=== PATIENT | male | born 1970 ===

== ENCOUNTER 2016-09-12 01:43 | Emergency (ER) | payer MEDICARE, OTHER ==
[2016-09-12 01:43] VITALS: BMI 44.4
[2016-09-12 01:51] VITALS: RESP 16
--- NOTE | 2016-09-12 02:04 | ED PDOC ---
HPI: Psych/Substance Abuse Time Seen by Provider: 09/12/16 01:47 Chief Complaint (Nursing): Alcohol Ingestion Chief Complaint (Provider): ETOH History Per: Patient Additional Complaint(s): 45 y/o male with PMHx of diastolic CHF, hyperlipidemia, HTN, alcoholic cirrhosis , schizophrenia and PVD presents to ED after drinking tonight and falling onto his face. No LOC. Multiple abrasions noted to face. Past Medical History Reviewed: Historical Data, Nursing Documentation, Vital Signs Vital Signs: Last Vital Signs Temp 98.2 F 09/12/16 01:48 Pulse 89 09/12/16 01:48 Resp 16 09/12/16 01:48 BP 157/86 H 09/12/16 01:48 Pulse Ox 96 09/12/16 01:48 - Medical History PMH: Anxiety, Asthma, Bipolar Disorder, CHF, COPD (ASTHMA), Depression, HTN, Schizophrenia Denies: Alzheimer's Disease, Arthritis, Atrial Fibrillation, Bronchitis, Cardia Arrhythmia, Dementia, Emphysema, Hypercholesterolemia, Hypothyroidism, Migraine, Mitral Valve Prolapse, Multiple Sclerosis, Parkinson's Disease, Peripheral Edema, Pneumonia, Pulmonary Embolism, Chronic Kidney Disease, Rheumatoid Arthritis, Seizures, Sleep Apnea, TIA - Surgical History Surgical History: Appendectomy Denies: Pacemaker - Family History Family History: States: Unknown Family Hx - Social History Alcohol: > 2 Drinks/Day - Immunization History Hx Tetanus Toxoid Vaccination: No Hx Influenza Vaccination: Yes Hx Pneumococcal Vaccination: No - Home Medications Home Medications: Ambulatory Orders Medication Instructions Recorded ARIPiprazole [Abilify] 5 mg PO DAILY #0 tab 07/12/15 Folic Acid 1 mg PO DAILY #0 tab 07/12/15 Lurasidone HCl [Latuda] 40 mg PO HS #0 tablet 07/12/15 Midodrine [Proamatine] 5 mg PO TID #0 tab 07/12/15 Omeprazole 40 mg PO DAILY #0 capsule. 07/12/15 Thiamine [Vitamin B1 Tab] 100 mg PO DAILY #0 tab 07/12/15 Aspirin [Aspirin Chewable] 81 mg PO DAILY #30 chew 09/13/15 Cilostazol 100 mg PO BID #60 tablet 09/13/15 Multivitamins [Hexavitamin] 1 tab PO DAILY #0 tab 09/13/15 Spironolactone [Aldactone] 25 mg PO BID #60 tab 09/13/15 - Allergies Allergies/Adverse Reactions: Allergies Allergy/AdvReac Type Severity Reaction Status Date / Time No Known Allergies Allergy Verified 06/10/16 09:10 Review of Systems ROS Statement: Except As Marked, All Systems Reviewed And Found Negative Skin: Positive for: Other (abrasions) Physical Exam - Reviewed Nursing Documentation Reviewed: Yes Vital Signs Reviewed: Yes - Physical Exam Appears: Positive for: Well, Non-toxic, No Acute Distress Head Exam: Positive for: ATRAUMATIC, NORMAL INSPECTION, NORMOCEPHALIC Skin: Positive for: Normal Color, Warm Eye Exam: Positive for: EOMI, Normal appearance, PERRL ENT: Positive for: Normal ENT Inspection, Other (4 cm laceration to upper lip, not extending through [place] boarder.) Neck: Positive for: Normal, Painless ROM Cardiovascular/Chest: Positive for: Regular Rate, Rhythm Respiratory: Positive for: CNT, Normal Breath Sounds Gastrointestinal/Abdominal: Positive for: Normal Exam, Bowel Sounds, Soft Back: Positive for: Normal Inspection Extremity: Positive for: Normal ROM Neurologic/Psych: Positive for: Alert, Oriented Comments: multiple superficial abrasion to forehead, nasal bridge and cheeks - ECG O2 Sat by Pulse Oximetry: 96 Medical Decision Making Medical Decision Making: Head and Maxillofaial CT: Negative, as per [facility] Facial abrasions cleaned and dressed by blurb writer. Lip laceration repaired, see procedure note. Disposition - Clinical Impression Clinical Impression: Alcohol use, Facial laceration, Head injury - Patient ED Disposition Is Patient to be Admitted: No - Disposition Disposition: Routine/Home Disposition Time: 05:21 Condition: STABLE Instructions: Laceration (ED), Head Injury (ED), Alcohol Intoxication (ED) Laceration - Laceration Repair laceration Wound Length (In cm): 4 Description Of Wound: Irregular Wound Cleansed With: Sterile Saline Anesthesia: Lidocaine 1% Wound Examination: Irrigated With Saline Wound Closure: Suture Suture Technique And Material Used: Vicryl (5-0) Wound Complexity: Simple
[2016-09-12] MEDS ORDERED: Lidocaine 1% Inj (20ml) ONE (02:26)
--- NOTE | 2016-09-12 03:27 | CT ---
EXAM: CT Head Without Intravenous Contrast CLINICAL HISTORY: 46 years old, male; Injury or trauma; Fall; Initial encounter; Concussion / head injury; Without loss of consciousness; Additional info: (+) ETOH, fall, head injury TECHNIQUE: Axial computed tomography images of the head/brain without intravenous contrast. This CT exam was performed using one or more of the following dose reduction techniques: automated exposure control, adjustment of the mA and/or kV according to patient size, and/or use of iterative reconstruction technique. Coronal and sagittal reformatted images were created and reviewed. EXAM DATE/TIME: Exam ordered 09/12/2016 2:02 AM COMPARISON: No relevant prior studies available. FINDINGS: Brain: No intracranial hemorrhage. No significant white matter disease. No edema. Ventricles: Unremarkable. No ventriculomegaly. Bones/joints: Included portions of the mandible appear intact. No acute fracture. Soft tissues: Left frontal extracranial soft tissue swelling. Question prominent left parotid. Sinuses: Paranasal sinuses appear clear. Mastoid air cells: Mastoid air cells appear clear. IMPRESSION: No fractures, no intracranial hemorrhage. Physical examination correlation.
[2016-09-12 11:58] LABS: BASO % 0.5 % (0.0-2.0); EOS # 0.1 K/uL (0.0-0.7); EOS % 2.2 % (0.0-4.0); HEMATOCRIT 39.2 % (35.0-51.0); LYMPH # 1.4 K/uL (1.0-4.3); LYMPH % 39.9 % (20.0-40.0); MEAN CORPUSCULAR HEMOGLOBIN 28.8 pg (27.0-31.0); MEAN CORPUSCULAR HGB CONC 31.9 g/dL (33.0-37.0); MEAN PLATELET VOLUME 7.8 fl (7.2-11.7); MONO # 0.6 K/uL (0.0-0.8); MONO % 16.2 % (0.0-10.0); NEUT # 1.4 K/uL (1.8-7.0); NEUT % 41.2 % (50.0-75.0); NRBC % 0.3 % (0.0-0.0); RED CELL DISTRIBUTION WIDTH 18.5 % (11.5-14.5); WHITE BLOOD COUNT 3.5 K/uL (4.8-10.8)
[2016-09-12 12:08] LABS: ALB/GLOB RATIO 0.7 (1.0-2.1); ALKALINE PHOSPHATASE 180 U/L (38-126); ALT/SGPT 47 U/L (21-72); AST/SGOT 192 U/L (17-59); BILIRUBIN,TOTAL 2.1 mg/dl (0.2-1.3); BLOOD UREA NITROGEN 3 mg/dl (9-20); CALCIUM 8.2 mg/dL (8.4-10.2); CARBON DIOXIDE 24 mmol/L (22-30); CHLORIDE 106 mmol/L (98-107); GFR AFRICAN-AMERICAN > 60; GLUCOSE,RANDOM 93 mg/dL (75-110); MEAN CELL VOLUME 90.2 fl (80.0-94.0); POTASSIUM 4.4 MMOL/L (3.6-5.0); SODIUM 142 mmol/l (132-148); TOTAL PROTEIN 8.8 G/DL (6.3-8.2)
[2016-09-12 12:16] LABS: ALCOHOL SERUM 349 mg/dl (0-10)
--- NOTE | 2016-09-12 12:55 | CT ---
PROCEDURE: CT scan maxillofacial skeleton dated 09/12/2016 HISTORY: (+) ETOH,. Status post fall. Head injury. COMPARISON: Comparison made with concurrent CT scan brain 09/12/2016 TECHNIQUE: Contiguous helical/ transaxial CT images of the maxillofacial bones were obtained. Coronal and sagittal reformats were generated. Radiation dose: Total exam DLP = 815.02 mGy-cm. This CT exam was performed using one or more of the following dose reduction techniques: Automated exposure control, adjustment of the mA and/or kV according to patient size, and/or use of iterative reconstruction technique. Findings: The current study reveals no definitive evidence of acute maxillofacial skeletal fractures. The osseous structures appear intact so far as can be seen of. There is mild soft tissue swelling over the left supraorbital and left frontal region. There may also be some mild soft tissue swelling over the bridge of the nose, more so on the right side. The bony orbits are intact. Globes intact and lenses appropriately located. There are no retrobulbar hemorrhages or collections. Optic nerves and extraocular musculature unremarkable. The visualized paranasal sinuses well-developed and currently well-aerated. No fluid levels seen to suggest acute hemorrhage or sinusitis. Mild mucosal thickening seen in the maxillary antra right greater than left. Minor mucosal thickening noted within a few ethmoid air cells There is mild focal deviation of the nasal septum from left to right. Nasal bone and anterior and nasal spine of the maxilla is intact. The mandible is intact. Impression: No evidence of acute fractures. Mild soft tissue swelling left supraorbital and left frontal region all with what appears represent small amount of soft tissue swelling over the bridge of the nose more so on the right. See above discussion for additional incidental details and findings. .
[2016-09-12 13:00] VITALS: BP 124/77; PULSE 82; TEMP 98.7; O2SAT 97
--- NOTE | 2016-09-12 14:20 | ED PDOC ---
- Laboratory Results Result Diagrams: 09/12/16 11:53 09/12/16 11:53 - ECG O2 Sat by Pulse Oximetry: 97 - Progress Re-evaluation Time: 14:19 Condition: Improved (Awake alert oriented x 3 no focal neuro deficit. Able to ambulate. Requesting to be discharged.) Disposition - Clinical Impression Clinical Impression: Alcohol use, Facial laceration, Head injury, Alcohol intoxication - POA Present On Arrival: None - Disposition Disposition: Routine/Home Disposition Time: 14:20 Condition: FAIR Instructions: Laceration (ED), Head Injury (ED), Alcohol Intoxication (ED) Print Language: AUSTRALIAN
== END 2016-09-12 15:09 | disposition home or self-care (01) ==
LOC: H.ER 01:43
DX: S09.90XA Unspecified injury of head, initial encounter (principal); S01.81XA Laceration without foreign body of other part of head, initial encounter; W19.XXXA Unspecified fall, initial encounter; F10.129 Alcohol abuse with intoxication, unspecified; F20.9 Schizophrenia, unspecified; F31.9 Bipolar disorder, unspecified; F41.9 Anxiety disorder, unspecified; I10 Essential (primary) hypertension; I50.9 Heart failure, unspecified; J44.9 Chronic obstructive pulmonary disease, unspecified; J45.909 Unspecified asthma, uncomplicated; Z79.82 Long term (current) use of aspirin
CPT/HCPCS: 12011; 70450; 70486; 80053; 82140; 85025; 99283; G0480

== ENCOUNTER 2017-01-16 10:46 | Inpatient (IN) | payer MEDICARE, OTHER ==
[2017-01-16 10:48] VITALS: BMI 44.4
--- NOTE | 2017-01-16 11:22 | ED PDOC ---
Syncope/Near Syncope/Dizziness Time Seen by Provider: 01/16/17 10:46 Chief Complaint (Nursing): Abdominal Pain Chief Complaint (Provider): Abdominal Pain History Per: Patient History/Exam Limitations: no limitations Onset/Duration Of Symptoms: Days (x1) Current Symptoms Are (Timing): Still Present Additional Complaint(s): Aman Coyne is a 46 year old male with previous medical history of cirrhosis , who presents to the emergency department with a complaint of upper abdominal pain associated with chills ongoing for 1 day. Denied any fevers or vomiting. PMD: none provided Past Medical History Reviewed: Historical Data, Nursing Documentation, Vital Signs Vital Signs: Last Vital Signs Temp 98.7 F 01/16/17 10:48 Pulse 76 01/16/17 10:48 Resp 18 01/16/17 10:48 BP 104/56 L 01/16/17 10:48 Pulse Ox 98 01/16/17 11:05 - Medical History PMH: Anxiety, Arthritis (BACK,KNEES), Asthma, Bipolar Disorder, CHF, COPD ( ASTHMA), Depression, HTN, Schizophrenia Denies: Alzheimer's Disease, Anemia, Dementia, HIV, Hypothyroidism, Migraine , Multiple Sclerosis, Parkinson's Disease, Chronic Kidney Disease, Rheumatoid Arthritis, Seizures, Sickle Cell Disease, TIA - Surgical History Surgical History: Appendectomy Denies: CABG, Carotid Endarterectomy, Cholecystectomy, Coronary Stent, Pacemaker, Tonsillectomy - Family History Family History: States: Unknown Family Hx - Immunization History Hx Tetanus Toxoid Vaccination: No Hx Influenza Vaccination: Yes Hx Pneumococcal Vaccination: No - Home Medications Home Medications: Ambulatory Orders Medication Instructions Recorded ARIPiprazole [Abilify] 5 mg PO DAILY #0 tab 07/12/15 Folic Acid 1 mg PO DAILY #0 tab 07/12/15 Lurasidone HCl [Latuda] 40 mg PO HS #0 tablet 07/12/15 Midodrine [Proamatine] 5 mg PO TID #0 tab 07/12/15 Omeprazole 40 mg PO DAILY #0 lily. 07/12/15 Thiamine [Vitamin B1 Tab] 100 mg PO DAILY #0 tab 07/12/15 Aspirin [Aspirin Chewable] 81 mg PO DAILY #30 tab 09/22/16 Cilostazol [Pletal] 100 mg PO BID #60 tab 09/22/16 Furosemide 40 mg PO DAILY #30 tablet 12/22/16 Gabapentin [Neurontin] 400 mg PO TID #90 cap 12/22/16 Lactulose [Enulose] 30 gm PO BID #30 12/22/16 Spironolactone [Aldactone] 100 mg PO DAILY #30 tab 12/22/16 rifAXIMin [Xifaxan] 550 mg PO BID #30 tab 12/22/16 Albuterol HFA [Ventolin HFA 90 2 puff IN Q6 PRN 01/16/17 mcg/actuation (8 g)] - Allergies Allergies/Adverse Reactions: Allergies Allergy/AdvReac Type Severity Reaction Status Date / Time No Known Allergies Allergy Verified 01/16/17 11:04 Review of Systems ROS Statement: Except As Marked, All Systems Reviewed And Found Negative Constitutional: Positive for: Chills. Negative for: Fever Gastrointestinal: Positive for: Abdominal Pain (epigastric). Negative for: Vomiting Physical Exam - Reviewed Nursing Documentation Reviewed: Yes Vital Signs Reviewed: Yes - Physical Exam Appears: Positive for: Well, Non-toxic, No Acute Distress Head Exam: Positive for: ATRAUMATIC, NORMAL INSPECTION, NORMOCEPHALIC Skin: Positive for: Normal Color Eye Exam: Positive for: Normal appearance ENT: Positive for: Normal ENT Inspection Neck: Positive for: Normal Cardiovascular/Chest: Positive for: Regular Rate, Rhythm. Negative for: Chest Non Tender Respiratory: Positive for: Normal Breath Sounds, Accessory Muscle Use. Negative for: Decreased Breath Sounds, Respiratory Distress Gastrointestinal/Abdominal: Positive for: Tenderness (epigastric), Asicites. Negative for: Normal Exam Back: Positive for: Normal Inspection. Negative for: L CVA Tenderness, R CVA Tenderness Extremity: Positive for: Normal ROM. Negative for: Tenderness, Pedal Edema, Deformity Neurologic/Psych: Positive for: Alert, Oriented - Laboratory Results Result Diagrams: 01/16/17 11:40 01/16/17 11:40 - ECG O2 Sat by Pulse Oximetry: 98 (RA) Pulse Ox Interpretation: Normal - Progress ED Course And Treament: zosyn 4.5 gm iv x 1 dose in ED ns 1 liter wide open pepcid 20 mg iv x 1 dose lipase noted elevated. d/w Dr. Vargas CT abd/pelvis ordered. morphine 4 mg i vx 1 dose for pain d/w Dr. Wang for admission. US results reviewed with DR. dale, he will f/u with CT evaluation. Medical Decision Making Medical Decision Making: Initial Impression: Abdominal pain Initial Plan: * VBG * EKG * Alcohol serum * Ammonia * CMP * Lipase * Magnesium * Troponin I * CBC * PTT * PT * CXR * Blood culture * Urinalysis * US ABD Time: 1413 --US ABD FINDINGS: LIVER: Measures 12.6 cm in length. There is no increased echogenicity of the hepatic parenchyma as prior CT previously demonstrated fatty liver changes delete. Prior fatty liver changes are not identified sonographically at this time. No mass. No intrahepatic bile duct dilatation. Hepatofugal blood flow suggested on color ultrasound. There is a borderline nodular peripheral hepatic pattern may indicate cirrhosis. GALLBLADDER: Gallbladder appears prominently distended, however, there is no month sonographic Caballero sign, cholelithiasis, mural thickening or pericholecystic fluid collection identified. COMMON BILE DUCT: Measures 8.9 mm. No stones. PANCREAS: The pancreas not visualized to our prominent overlying bowel gas. RIGHT KIDNEY: Measures 11.6 cm in length. Normal echogenicity. No calculus, mass, or hydronephrosis. AORTA: No aneurysmal dilatation. IVC: Unremarkable. OTHER FINDINGS: None . IMPRESSION: -Abnormal dilatation of the common bile duct is identified up to 8.9 mm without choledocholithiasis identified. The gallbladder is markedly distended without mural thickening or cholelithiasis evident. The pancreas is obscured by overlying bowel gas. -Borderline cirrhosis pattern however there is hepatofugal blood flow by color Doppler ultrasound. Further clinical correlation advised. Scribe Attestation: Documented by Krista Frank, acting as a scribe for Karmen Herron PA-C. Provider Scribe Attestation: All medical record entries made by the Scribe were at my direction and personally dictated by me. I have reviewed the chart and agree that the record accurately reflects my personal performance of the history, physical exam, medical decision making, and the department course for this patient. I have also personally directed, reviewed, and agree with the discharge instructions and disposition. Disposition - Clinical Impression Clinical Impression: Pancreatitis - Patient ED Disposition Is Patient to be Admitted: Yes - Disposition Disposition Time: 15:15 Condition: FAIR - Pt Status Changed To: Hospital Disposition Of: Inpatient - Admit Certification Admit to Inpatient:: After my assessment, the patient will require hospitalization for at least two midnights. This is because of the severity of symptoms shown, intensity of services needed, and/or the medical risk in this patient being treated as an outpatient.
[2017-01-16 11:44] LABS: VENOUS BLOOD GAS BASE EXCESS -0.9 mmol/L (0.0-2.0); VENOUS BLOOD GAS PCO2 50 mmHg (40-60); VENOUS BLOOD PH 7.32 (7.32-7.43)
[2017-01-16 11:51] LABS: BASO % 0.3 % (0.0-2.0); EOS % 0.9 % (0.0-4.0); HEMATOCRIT 36.5 % (35.0-51.0); LYMPH # 0.8 K/uL (1.0-4.3); LYMPH % 15.3 % (20.0-40.0); MEAN CELL VOLUME 105.5 fl (80.0-94.0); MEAN CORPUSCULAR HEMOGLOBIN 35.4 pg (27.0-31.0); MEAN CORPUSCULAR HGB CONC 33.5 g/dL (33.0-37.0); MEAN PLATELET VOLUME 8.3 fl (7.2-11.7); MONO # 0.4 K/uL (0.0-0.8); MONO % 7.2 % (0.0-10.0); NEUT # 3.9 K/uL (1.8-7.0); NEUT % 76.3 % (50.0-75.0); NRBC % 0.2 % (0.0-0.0); WHITE BLOOD COUNT 5.2 K/uL (4.8-10.8)
[2017-01-16 11:59] LABS: RBC URINE 1 /hpf (0-3); URINE BILIRUBIN NEGATIVE (NEGATIVE); URINE BLOOD NEGATIVE (NEGATIVE); URINE COLOR YELLOW (YELLOW); URINE GLUCOSE (UA) NEG (Normal); URINE KETONE NEGATIVE (NEGATIVE); URINE LEUKOCYTE ESTERASE NEG Leu/uL (Negative); URINE PROTEIN NEGATIVE (NEGATIVE); URINE UROBILINOGEN 0.2-1.0 mg/dL (0.2-1.0); WBC URINE 1 /hpf (0-5)
[2017-01-16 12:03] LABS: ALB/GLOB RATIO 0.6 (1.0-2.1); ALCOHOL SERUM < 10 mg/dl (0-10); ALKALINE PHOSPHATASE 245 U/L (38-126); ALT/SGPT 61 U/L (21-72); AST/SGOT 119 U/L (17-59); BILIRUBIN,TOTAL 4.7 mg/dl (0.2-1.3); BLOOD UREA NITROGEN 8 mg/dl (9-20); CALCIUM 8.5 mg/dL (8.4-10.2); CARBON DIOXIDE 22 mmol/L (22-30); CHLORIDE 99 mmol/L (98-107); GFR AFRICAN-AMERICAN > 60; GLUCOSE,RANDOM 124 mg/dL (75-110); MAGNESIUM 1.2 MG/DL (1.6-2.3); POTASSIUM 4.2 MMOL/L (3.6-5.0); SODIUM 135 mmol/l (132-148); TOTAL PROTEIN 8.5 G/DL (6.3-8.2)
[2017-01-16] MEDS ORDERED: Sodium Chloride 0.9% 2,000 ML IV STA (12:11)
[2017-01-16 12:16] LABS: LIPASE 3683 U/L (23-300)
--- NOTE | 2017-01-16 12:20 | CARD ---
APPROVED REPORT EKG Measurement Heart [id number] IN 160P-4 [id number] <Conclusion> Sinus rhythm with premature supraventricular complexes Nonspecific ST abnormality Prolonged QT Abnormal ECG baseline artefact
[2017-01-16 12:29] LABS: PARTIAL THROMBOPLASTIN TIME 34.6 Seconds (25.6-37.1)
[2017-01-16] MEDS ORDERED: Lactated Ringer's 2,000 ML IV SCH (12:30)
[2017-01-16] MEDS ORDERED: Magnesium Sulfate 2 gm/50 ml 2 GM/50 ML BAG IVPB ONE (12:39)
[2017-01-16] MEDS ORDERED: Lactated Ringer's 500 ML IV SCH (12:45)
[2017-01-16] MEDS ORDERED: Magnesium Sulfate 2 gm/50 ml 2 GM/50 ML BAG ONE (12:45)
[2017-01-16] MEDS: Lactated Ringer's 500 ML IV SCH ×10 (12:51→16:00)
[2017-01-16] MEDS: Piperacillin/Tazobact 4.5 GM in Sodium Chloride 0.9% 100 ML IVPB SCH ×2 (13:59→21:37)
--- NOTE | 2017-01-16 14:14 | US ---
HISTORY: EVALUATION ASCITES/GALLBLADDER COMPARISON: Abdomen pelvis CT 07/04/2015. TECHNIQUE: Sonographic evaluation of the right upper quadrant of the abdomen. FINDINGS: LIVER: Measures 12.6 cm in length. There is no increased echogenicity of the hepatic parenchyma as prior CT previously demonstrated fatty liver changes delete. Prior fatty liver changes are not identified sonographically at this time. No mass. No intrahepatic bile duct dilatation. Hepatofugal blood flow suggested on color ultrasound. There is a borderline nodular peripheral hepatic pattern may indicate cirrhosis. GALLBLADDER: Gallbladder appears prominently distended, however, there is no month sonographic Caballero sign, cholelithiasis, mural thickening or pericholecystic fluid collection identified. COMMON BILE DUCT: Measures 8.9 mm. No stones. PANCREAS: The pancreas not visualized to our prominent overlying bowel gas. RIGHT KIDNEY: Measures 11.6 cm in length. Normal echogenicity. No calculus, mass, or hydronephrosis. AORTA: No aneurysmal dilatation. IVC: Unremarkable. OTHER FINDINGS: None . IMPRESSION: Abnormal dilatation of the common bile duct is identified up to 8.9 mm without choledocholithiasis identified. The gallbladder is markedly distended without mural thickening or cholelithiasis evident. The pancreas is obscured by overlying bowel gas. Borderline cirrhosis pattern however there is hepatofugal blood flow by color Doppler ultrasound. Further clinical correlation advised.
[2017-01-16 14:58] LABS: VENOUS BLOOD GAS BASE EXCESS 1.7 mmol/L (0.0-2.0); VENOUS BLOOD GAS PCO2 48 mmHg (40-60); VENOUS BLOOD PH 7.37 (7.32-7.43)
[2017-01-16] MEDS ORDERED: Iohexol 300 100 ML IJ ONE (14:59)
[2017-01-16] MEDS ORDERED: Sodium Chloride 0.9% 50 ML IV ONE (14:59)
--- NOTE | 2017-01-16 15:53 | CT ---
PROCEDURE: CT Abdomen and Pelvis with contrast HISTORY: pancreatitis COMPARISON: None. TECHNIQUE: Contrast dose: Omnipaque 300, 95 cc Radiation dose: Total exam DLP = 1086.98 mGy-cm. This CT exam was performed using one or more of the following dose reduction techniques: Automated exposure control, adjustment of the mA and/or kV according to patient size, and/or use of iterative reconstruction technique. FINDINGS: LOWER THORAX: Cardiomegaly is worsened with marked esophageal varices again evident. LIVER: Enlarged cirrhotic liver is appreciated with evidence of hepatofugal blood flow including the aforementioned esophageal varices, but also gastrohepatic and spinal renal varices as well. GALLBLADDER AND BILE DUCTS: Gallbladder is distended with mild mural thickening which is nonspecific. Prior dependent cholelithiasis is now not identified in the gallbladder. The common bile duct is dilated up to 10 mm proximally tapering to 7 mm distally without radiodense choledocholithiasis. PANCREAS: Pancreatic duct is normal caliber. Subtle peripancreatic reaction is questioned but is not definite and may indicate an element of pancreatitis. Clinically correlate. SPLEEN: Splenomegaly is noted to 16.5 cm, increased in the interval. ADRENALS: Unremarkable. No mass. KIDNEYS AND URETERS: Unremarkable. No hydronephrosis. No solid mass. VASCULATURE: Unremarkable. No aortic aneurysm. BOWEL: Unremarkable. No obstruction. No gross mural thickening. APPENDIX: Not clearly identified. PERITONEUM: Mild central lymphadenopathy is appreciated with ground-glass opacity suspicious for mesenteric adenitis which complicates the potential diagnosis of pancreatitis by CT criteria and clinical correlation is advised. LYMPH NODES: Mildly enlarged central mesenteric lymph nodes as noted in the peritoneum section above. BLADDER: Thick-walled urinary bladder is appreciated anteriorly which could reflect cystitis or even neoplasm though the bladder is not fully distended. Clinically correlate further. REPRODUCTIVE: Unremarkable. BONES: No acute fracture. OTHER FINDINGS: None. IMPRESSION: 1. Hepatomegaly with evidence of the hepatofugal blood flow including esophageal, gastrohepatic ligament and low splenorenal varices. 2. Borderline CT pancreatitis pattern however this complicated by the presence of what may be mesenteric adenitis and clinical correlation is advised further. 3. Dilated common bile duct is appreciated in the interval of indeterminate etiology. Consider potential lucent choledocholithiasis, distal CBD stricture pancreatic head lesion or possible axillary lesion has no radiodense cholelithiasis identified. Prior radiodense cholelithiasis in the the dependent gallbladder is not identified currently. 4. Other lesser findings as discussed above.
[2017-01-16] MEDS ORDERED: Piperacillin/Tazobact 4.5 GM in Sodium Chloride 0.9% 100 ML IVPB SCH (16:00)
[2017-01-16] MEDS: Lactated Ringer's 1,000 ML IV SCH ×2 (16:01→20:00)
--- NOTE | 2017-01-16 16:52 | RAD ---
HISTORY: ABD PAIN COMPARISON: Portable chest 07/04/2015. FINDINGS: LUNGS: No active pulmonary disease. PLEURA: No significant pleural effusion identified, no pneumothorax apparent. CARDIOVASCULAR: Stable cardiomegaly. No pulmonary vascular derangement appreciated. OSSEOUS STRUCTURES: No significant abnormalities. VISUALIZED UPPER ABDOMEN: Normal. OTHER FINDINGS: None. IMPRESSION: No interval acute cardiopulmonary disease appreciated. Stable cardiomegaly as compared to prior chest 07/04/2015.
[2017-01-16] MEDS ORDERED: Albuterol HFA 90 mcg/actuation (8 g) INH PRN (17:51)
[2017-01-16] MEDS ORDERED: Influenza Vaccine 18yr & older 0.5 ML/45 MCG SYR IM ONE (18:37)
[2017-01-17 00:08] VITALS: RESP 18
[2017-01-17] MEDS: Lactated Ringer's 1,000 ML IV SCH ×3 (00:22→08:49)
[2017-01-17] MEDS: Piperacillin/Tazobact 4.5 GM in Sodium Chloride 0.9% 100 ML IVPB SCH ×2 (00:22→05:52)
[2017-01-17 06:42] VITALS: PULSE 71; TEMP 98.6; O2SAT 97
[2017-01-17 08:47] VITALS: BP 115/71
[2017-01-17] MEDS ORDERED: Enoxaparin 40 mg Syringe SC SCH (09:00)
[2017-01-17] MEDS ORDERED: Cilostazol 100 mg Tab UD PO SCH (09:00)
[2017-01-17] MEDS ORDERED: Pantoprazole 40 mg EC Tab PO SCH (09:00)
[2017-01-17 09:50] LABS: THYROID STIMULATING HORMONE 2.15 mIU/ML (0.46-4.68)
--- NOTE | 2017-01-18 03:28 | HP ---
CHIEF COMPLAINT: Abdominal pain. HISTORY OF PRESENT ILLNESS: This is a 46-year-old male, known case of cirrhosis of liver, who was having upper abdominal pain for about 1 day duration, so the patient was brought to the emergency room and was admitted for further management. REVIEW OF SYSTEMS: Positive for abdominal pain. Review of system otherwise is negative for headache, dizziness, syncope, loss of consciousness, chest pain, shortness of breath, nausea, vomiting, diarrhea, constipation, anemia, joint or extremity pain. Review of systems is also positive for chills. PAST MEDICAL HISTORY: Significant for anxiety, arthritis, asthma, bipolar disorder, COPD, CHF, depression, cirrhosis, hypertension and schizophrenia. PERSONAL HISTORY: The patient is currently nonsmoker, nondrinker. No substance abuse, but has a history of similar in the past. PERSONAL FAMILY HISTORY: Noncontributory. MEDICATIONS: The patient is on multiple medications, which includes Abilify, folic acid, Latuda, midodrine, omeprazole, thiamine, aspirin, Pletal, Lasix, Neurontin, lactulose, Aldactone, Zyprexa and albuterol. ALLERGIES: The patient is not allergic to any medications. PHYSICAL EXAMINATION: GENERAL: Well-built, well-nourished, morbidly obese male, in no acute distress. VITAL SIGNS: Temperature 98.6, pulse 71, respirations 18, and blood pressure 126/74. HEENT: Pupils reacting to light. Normocephalic, atraumatic skull. NECK: No JVD. No thyromegaly. No lymphadenopathy. No nystagmus. HEART: S1 and S2, normal and regular. No significant murmur, gallop or rub is heard. LUNGS: Shows good bilateral air exchange. No rales or rhonchi. ABDOMEN: Soft and nontender. No organomegaly. No fluids. No sign of acute abdomen. No guarding. No rigidity. No rebound. Bowel sounds are present and normal. EXTREMITIES: No edema. No calf swelling. No tenderness. No acute ischemia. CENTRAL NERVOUS SYSTEM: Essentially unchanged and there is no sign of any acute gross focal motor or sensory neurological deficit. DIAGNOSTIC DATA: Available diagnostic data reviewed. WBC 5.2, hemoglobin 12.2, hematocrit 36.5, and platelets 152. The pH 7.37, pCO2 of 48, pO2 of 19, of course, this is venous blood gas. Sodium 135, potassium 4.2, chloride 99, bicarbonate 22, BUN 8, and creatinine 0.6. Lipase level is 3683, AST of 119, ALT of 61. Urinalysis is negative. CAT scan of abdomen shows hepatomegaly with , questionable pancreatitis, dilated common bile duct. ADMITTING IMPRESSION: Acute pancreatitis, cirrhosis of liver, hypertension, congestive heart failure, chronic obstructive pulmonary disease, depression, bipolar disorder, schizophrenia and arthritis. PLAN: As ordered. Case and plan discussed with the patient. Maninder Wang MD
== END 2017-01-17 10:10 | disposition left against medical advice (07) | DRG 440 ==
LOC: H.ER 10:46 → H.ERHOLD 15:21 → H.TEL 17:10
PROVIDERS: ADMIT Internal Medicine; ATTEND Internal Medicine
PROC: 3E0234Z Introduction of Serum, Toxoid and Vaccine into Muscle, Percutaneous Approach (ICD-10-PCS; principal; 2017-01-16)
DX: K85.90 Acute pancreatitis without necrosis or infection, unspecified (principal); I11.0 Hypertensive heart disease with heart failure; I50.9 Heart failure, unspecified; K74.60 Unspecified cirrhosis of liver; F20.9 Schizophrenia, unspecified; F31.9 Bipolar disorder, unspecified; J44.9 Chronic obstructive pulmonary disease, unspecified; M19.90 Unspecified osteoarthritis, unspecified site; Z79.899 Other long term (current) drug therapy; Z23 Encounter for immunization

== ENCOUNTER 2017-11-02 01:03 | Emergency (ER) | payer MEDICARE, OTHER ==
[2017-11-02 01:33] VITALS: BMI 40.6
[2017-11-02 01:44] VITALS: O2SAT 98
--- NOTE | 2017-11-02 02:55 | ED PDOC ---
HPI: Psych/Substance Abuse Time Seen by Provider: 11/02/17 02:13 Chief Complaint (Nursing): Alcohol Ingestion Chief Complaint (Provider): Alcohol Ingestion History Per: Patient, EMS History/Exam Limitations: no limitations Onset/Duration Of Symptoms: Other (prior to arrival) Current Symptoms Are (Timing): Still Present Additional Complaint(s): 47 y/o male brought to ED by EMS due to public intoxication. Patient denies any medical complaints at this time. PMD: None reported Past Medical History Reviewed: Historical Data, Nursing Documentation, Vital Signs Vital Signs: Last Vital Signs Temp 98.6 F 11/02/17 01:43 Pulse 89 11/02/17 01:43 Resp BP 136/89 11/02/17 01:43 Pulse Ox 98 11/02/17 01:43 - Medical History PMH: Anxiety, Arthritis, Asthma, Bipolar Disorder, CHF, COPD (ASTHMA), Depression, Gall Bladder Disease, HTN, Schizophrenia Denies: Diabetes, Hepatitis, Chronic Kidney Disease, Sexually Transmitted Disease - Surgical History Surgical History: Appendectomy, Cholecystectomy Denies: CABG, Coronary Stent, Pacemaker, Tonsillectomy - Family History Family History: States: Unknown Family Hx - Immunization History Hx Tetanus Toxoid Vaccination: No Hx Influenza Vaccination: Yes Hx Pneumococcal Vaccination: No - Home Medications Home Medications: Ambulatory Orders Medication Instructions Recorded Folic Acid 1 mg PO DAILY #0 tab 07/12/15 Aspirin [Aspirin Chewable] 81 mg PO DAILY #30 chew 04/18/17 Cilostazol [Pletal] 100 mg PO BID #60 tab 04/18/17 Ferrous Sulfate 325 mg PO DAILY #30 tablet 04/18/17 Midodrine [Proamatine] 5 mg PO TID #90 tab 04/18/17 Multivitamins [Hexavitamin] 1 tab PO DAILY #30 tab 04/18/17 rifAXIMin [Xifaxan] 550 mg PO BID #60 tab 04/18/17 Dextromethorphan HBr/Quinidine 1 each PO BID 04/26/17 [Nuedexta 20-10 mg Capsule] Fluticasone Nasal [Flonase] 0.05 mg NS DAILY 04/26/17 Magnesium Oxide [Magnesium] 400 mg PO BID 04/26/17 Memantine HCl 10 mg PO DAILY 04/26/17 Omeprazole 40 mg PO DAILY 04/26/17 Furosemide [Lasix] 20 mg PO BID #30 tab 04/29/17 Lactulose [Enulose] 30 gm PO DAILY #30 udc 04/29/17 Spironolactone [Aldactone] 25 mg PO DAILY #30 tab 04/29/17 Famotidine [Pepcid] 20 mg PO BID 10/28/17 Gabapentin [Neurontin] 400 mg PO TID 10/28/17 Lactulose [Enulose] 20 gm PO TID #42 udc 10/29/17 - Allergies Allergies/Adverse Reactions: Allergies Allergy/AdvReac Type Severity Reaction Status Date / Time No Known Allergies Allergy Verified 10/28/17 07:43 Review of Systems Review Of Systems: ROS cannot be obtained secondary to pt's inabilty to answer questions. Physical Exam - Reviewed Nursing Documentation Reviewed: Yes Vital Signs Reviewed: Yes - Physical Exam Appears: Positive for: Non-toxic, No Acute Distress Head Exam: Positive for: ATRAUMATIC, NORMAL INSPECTION, NORMOCEPHALIC Skin: Positive for: Normal Color, Warm, Dry. Negative for: Rash Eye Exam: Positive for: EOMI, Normal appearance, PERRL Neck: Positive for: Normal, Painless ROM, Supple Cardiovascular/Chest: Positive for: Regular Rate, Rhythm. Negative for: Murmur Respiratory: Positive for: Normal Breath Sounds. Negative for: Respiratory Distress Gastrointestinal/Abdominal: Positive for: Normal Exam, Soft. Negative for: Tenderness Back: Positive for: Normal Inspection. Negative for: L CVA Tenderness, R CVA Tenderness, Vertebral Tenderness Extremity: Positive for: Normal ROM. Negative for: Pedal Edema, Deformity Neurologic/Psych: Positive for: Alert (slurred speech), Oriented. Negative for : Motor/Sensory Deficits - Laboratory Results Result Diagrams: 11/02/17 03:56 11/02/17 03:56 - ECG O2 Sat by Pulse Oximetry: 98 (RA) Pulse Ox Interpretation: Normal Medical Decision Making Medical Decision Makin:18 Impression: 47 y/o male brought to ED due to alcohol abuse Plan: -Alcohol serum -CMP -Drug screen -Urine dipstick -CBC -Accucheck -Reevaluation 06:30 Upon reevaluation, patient has steady gait and clear speech. He is stable for discharge. Scribe Attestation: Documented by Marcos Bullock, acting as a scribe for Oli Davenport MD. Provider Scribe Attestation: All medical record entries made by the Scribe were at my direction and personally dictated by me. I have reviewed the chart and agree that the record accurately reflects my personal performance of the history, physical exam, medical decision making, and the department course for this patient. I have also personally directed, reviewed, and agree with the discharge instructions and disposition. Disposition - Clinical Impression Clinical Impression: Alcohol abuse with intoxication - Patient ED Disposition Is Patient to be Admitted: No Counseled Patient/Family Regarding: Studies Performed, Diagnosis, Need For Followup - Disposition Referrals: Kristy Velasquez MD [Primary Care Provider] - Disposition: Routine/Home Disposition Time: 06:30 Condition: STABLE Additional Instructions: MYLENE MUÑIZ, thank you for letting us take care of you today. Your provider was Oli Davenport MD and you were treated for ETOH. The emergency medical care you received today was directed at your acute symptoms. If you were prescribed any medication, please fill it and take as directed. It may take several days for your symptoms to resolve. Return to the Emergency Department if your symptoms worsen, do not improve, or if you have any other problems. Please contact your doctor or call one of the physicians/clinics you have been referred to that are listed on the Patient Visit Information form that is included in your discharge packet. Bring any paperwork you were given at discharge with you along with any medications you are taking to your follow up visit. Our treatment cannot replace ongoing medical care by a primary care provider outside of the emergency department. Thank you for allowing the [facility] team to be part of your care today. If you had an X-Ray or CT scan: A Radiologist will review the ED reading if any change in treatment is needed we will contact you. If you had a blood, urine, or wound culture: It will take several days for the results, if any change in treatment is needed we will contact you. If you had an STI test: It will take 48 hours for the results. Please call after 1 week if you have not heard back. Instructions: Effects of Alcohol on Your Health Forms: [facility] (Tanzanian)
[2017-11-02 04:05] LABS: BASO % 0.7 % (0.0-2.0); EOS # 0.3 K/uL (0.0-0.7); HEMOGLOBIN 12.3 g/dL (12.0-18.0); LYMPH # 2.4 K/uL (1.0-4.3); LYMPH % 55.7 % (20.0-40.0); MEAN CELL VOLUME 89.7 fl (80.0-94.0); MEAN CORPUSCULAR HEMOGLOBIN 30.2 pg (27.0-31.0); MEAN CORPUSCULAR HGB CONC 33.7 g/dL (33.0-37.0); MEAN PLATELET VOLUME 7.4 fl (7.2-11.7); MONO # 0.4 K/uL (0.0-0.8); MONO % 9.9 % (0.0-10.0); NEUT # 1.2 K/uL (1.8-7.0); NEUT % 27.7 % (50.0-75.0); NRBC % 0.7 % (0.0-0.0); RBC 4.08 Mil/uL (4.40-5.90); RED CELL DISTRIBUTION WIDTH 21.7 % (11.5-14.5); WHITE BLOOD COUNT 4.3 K/uL (4.8-10.8)
[2017-11-02 04:12] LABS: ALB/GLOB RATIO 0.6 (1.0-2.1); ALBUMIN 3.4 g/dL (3.5-5.0); ALT/SGPT 29 U/L (21-72); AST/SGOT 98 U/L (17-59); BLOOD UREA NITROGEN 4 mg/dl (9-20); GFR AFRICAN-AMERICAN > 60; GFR NON-AFRICAN AMERICAN > 60
[2017-11-02 08:34] VITALS: BP 127/78; PULSE 78; RESP 19; TEMP 97
== END 2017-11-02 08:35 | disposition home or self-care (01) ==
LOC: H.ER 01:03
DX: F10.129 Alcohol abuse with intoxication, unspecified (principal); I11.0 Hypertensive heart disease with heart failure; I50.9 Heart failure, unspecified; F20.9 Schizophrenia, unspecified; F31.9 Bipolar disorder, unspecified; F41.9 Anxiety disorder, unspecified
CPT/HCPCS: 80053; 82948; 85025; 99283; G0480

== ENCOUNTER 2017-11-10 23:47 | Emergency (ER) | payer MEDICARE, OTHER ==
[2017-11-10 23:47] VITALS: BMI 40.6
--- NOTE | 2017-11-11 01:10 | ED PDOC ---
HPI: Psych/Substance Abuse Time Seen by Provider: 11/11/17 00:16 Chief Complaint (Nursing): Alcohol Ingestion Chief Complaint (Provider): Alcohol Ingestion ED Caveat: Intoxicated History Per: Patient History/Exam Limitations: no limitations Onset/Duration Of Symptoms: Hrs ([employer]) Current Symptoms Are (Timing): Still Present Additional Complaint(s): 47 year old male well known to this provider for ETOH intoxication was brought to ED by EMS due to public intoxication. Patient denies any medical complaints at this time. PMD: none provided Past Medical History Reviewed: Historical Data, Nursing Documentation, Vital Signs Vital Signs: Last Vital Signs Temp 98.0 F 11/10/17 23:48 Pulse 77 11/10/17 23:48 Resp 16 11/10/17 23:48 BP 117/67 11/10/17 23:48 Pulse Ox 96 11/10/17 23:48 - Medical History PMH: Anxiety, Arthritis, Asthma, Bipolar Disorder, CHF, COPD (ASTHMA), Depression, Gall Bladder Disease, HTN, Schizophrenia Denies: Diabetes, Hepatitis, HIV, Chronic Kidney Disease, Seizures, Sexually Transmitted Disease - Surgical History Surgical History: Appendectomy, Cholecystectomy Denies: CABG, Coronary Stent, Pacemaker, Tonsillectomy - Family History Family History: States: Unknown Family Hx - Immunization History Hx Tetanus Toxoid Vaccination: No Hx Influenza Vaccination: No Hx Pneumococcal Vaccination: No - Home Medications Home Medications: Ambulatory Orders Medication Instructions Recorded Folic Acid 1 mg PO DAILY #0 tab 07/12/15 Fluticasone Nasal [Flonase] 2 spray NS DAILY PRN 04/26/17 Furosemide [Lasix] 20 mg PO BID #30 tab 04/29/17 Spironolactone [Aldactone] 25 mg PO DAILY #30 tab 04/29/17 Gabapentin [Neurontin] 400 mg PO TID 10/28/17 Albuterol Sulfate [Ventolin Hfa] 2 puff IH Q6 PRN 11/11/17 Aspirin [Ecotrin] 81 mg PO DAILY 11/11/17 Cilostazol [Pletal] 100 mg PO Q12 11/11/17 Famotidine [Pepcid] 40 mg PO DAILY 11/11/17 Lactulose [Generlac] 15 ml PO BID 11/11/17 Memantine [Namenda] 10 mg PO DAILY 11/11/17 Nitroglycerin [Nitrostat] 0.4 mg SL Q5MIN PRN 11/11/17 Sertraline [Zoloft] 25 mg PO DAILY 11/11/17 metOLazone [Zaroxolyn] 5 mg PO DAILY 11/11/17 rifAXIMin [Xifaxan] 550 mg PO Q12 11/11/17 - Allergies Allergies/Adverse Reactions: Allergies Allergy/AdvReac Type Severity Reaction Status Date / Time No Known Allergies Allergy Verified 11/11/17 07:10 Review of Systems ROS Statement: Except As Marked, All Systems Reviewed And Found Negative Psych: Positive for: Other (Intoxication) Physical Exam - Reviewed Nursing Documentation Reviewed: Yes Vital Signs Reviewed: Yes - Physical Exam Appears: Positive for: Non-toxic, No Acute Distress Head Exam: Positive for: ATRAUMATIC, NORMOCEPHALIC Skin: Positive for: Normal Color, Warm, Dry Eye Exam: Positive for: EOMI, Normal appearance, PERRL Cardiovascular/Chest: Positive for: Regular Rate, Rhythm. Negative for: Murmur Respiratory: Positive for: Normal Breath Sounds. Negative for: Respiratory Distress Gastrointestinal/Abdominal: Positive for: Normal Exam, Soft. Negative for: Tenderness Extremity: Positive for: Normal ROM (upper and lower) Neurologic/Psych: Positive for: Alert - ECG O2 Sat by Pulse Oximetry: 96 (RA) Pulse Ox Interpretation: Normal Medical Decision Making Medical Decision Making: Time: 00:59 Initial Impression 47 y/o with ETOH intoxication Initial Plan: --Alcohol serum --Accucheck Time: 5:41 --Patient is clinically sober and ready for discharge home. Diagnosis alcohol intoxication. Scribe Attestation: Documented by Fadumo Mills, acting as a scribe for Oli Davenport MD Provider Scribe Attestation: All medical record entries made by the Scribe were at my direction and personally dictated by me. I have reviewed the chart and agree that the record accurately reflects my personal performance of the history, physical exam, medical decision making, and the department course for this patient. I have also personally directed, reviewed, and agree with the discharge instructions and disposition. Disposition - Clinical Impression Clinical Impression: Alcohol abuse with intoxication delirium - Disposition Referrals: Kristy Velasquez MD [Primary Care Provider] - Disposition: Routine/Home Disposition Time: 05:41 Condition: STABLE Instructions: Alcohol Use - When Is Drinking a Problem? Forms: [facility] (Kenyan) Print Language: AUSTRALIAN
[2017-11-11 07:08] VITALS: BP 126/72; PULSE 80; RESP 18; TEMP 98.2
[2017-11-11] MEDS ORDERED: Potassium Chloride 20 mEq ER Tab PO ONE (13:44)
[2017-11-11] MEDS ORDERED: Potassium CL 10 MEQ/50 ML 50 ML ONE (13:45)
[2017-11-11] MEDS ORDERED: Potassium CL 10 MEQ/50 ML 100 ML ONE (14:10)
[2017-11-12 02:01] VITALS: O2SAT 96
== END 2017-11-11 06:55 | disposition home or self-care (01) ==
LOC: H.ER 23:47
DX: F10.121 Alcohol abuse with intoxication delirium (principal); F20.9 Schizophrenia, unspecified; F31.9 Bipolar disorder, unspecified; F41.9 Anxiety disorder, unspecified; I11.0 Hypertensive heart disease with heart failure; Z79.82 Long term (current) use of aspirin
CPT/HCPCS: 82948; 99282; G0480

== ENCOUNTER 2017-11-11 07:07 | Emergency (ER) | payer MEDICARE, OTHER ==
[2017-11-11 07:07] VITALS: BMI 40.6
[2017-11-11 07:17] VITALS: O2SAT 100
--- NOTE | 2017-11-11 08:25 | ED PDOC ---
HPI: Psych/Substance Abuse Time Seen by Provider: 11/11/17 07:34 Chief Complaint (Nursing): Alcohol Ingestion Chief Complaint (Provider): Nausea/Vomiting History Per: Patient History/Exam Limitations: no limitations Onset/Duration Of Symptoms: Hrs Additional Complaint(s): 47 y/o male presents to the ED complaining of nausea and headache. Patient was discharged from the ED for alcohol intoxication last night. Patient returned for symptom relief. PMD: None Provided Past Medical History Reviewed: Historical Data, Nursing Documentation, Vital Signs Vital Signs: Last Vital Signs Temp 98.7 F 11/11/17 07:11 Pulse 87 11/11/17 07:11 Resp 18 11/11/17 07:11 BP 136/82 11/11/17 07:11 Pulse Ox 100 11/11/17 07:11 - Medical History PMH: Anxiety, Arthritis, Asthma, Bipolar Disorder, CHF, COPD (ASTHMA), Depression, Gall Bladder Disease, HTN, Schizophrenia Denies: Diabetes, Hepatitis, HIV, Chronic Kidney Disease, Seizures, Sexually Transmitted Disease - Surgical History Surgical History: Appendectomy, Cholecystectomy Denies: CABG, Coronary Stent, Pacemaker, Tonsillectomy - Family History Family History: States: Unknown Family Hx - Immunization History Hx Tetanus Toxoid Vaccination: No Hx Influenza Vaccination: No Hx Pneumococcal Vaccination: No - Home Medications Home Medications: Ambulatory Orders Medication Instructions Recorded Folic Acid 1 mg PO DAILY #0 tab 07/12/15 Fluticasone Nasal [Flonase] 2 spray NS DAILY PRN 04/26/17 Furosemide [Lasix] 20 mg PO BID #30 tab 04/29/17 Spironolactone [Aldactone] 25 mg PO DAILY #30 tab 04/29/17 Gabapentin [Neurontin] 400 mg PO TID 10/28/17 Albuterol Sulfate [Ventolin Hfa] 2 puff IH Q6 PRN 11/11/17 Aspirin [Ecotrin] 81 mg PO DAILY 11/11/17 Cilostazol [Pletal] 100 mg PO Q12 11/11/17 Famotidine [Pepcid] 40 mg PO DAILY 11/11/17 Lactulose [Generlac] 15 ml PO BID 11/11/17 Memantine [Namenda] 10 mg PO DAILY 11/11/17 Nitroglycerin [Nitrostat] 0.4 mg SL Q5MIN PRN 11/11/17 Sertraline [Zoloft] 25 mg PO DAILY 11/11/17 metOLazone [Zaroxolyn] 5 mg PO DAILY 11/11/17 rifAXIMin [Xifaxan] 550 mg PO Q12 11/11/17 - Allergies Allergies/Adverse Reactions: Allergies Allergy/AdvReac Type Severity Reaction Status Date / Time No Known Allergies Allergy Verified 11/11/17 07:10 Review of Systems ROS Statement: Except As Marked, All Systems Reviewed And Found Negative Gastrointestinal: Positive for: Nausea Neurological: Positive for: Headache Physical Exam - Reviewed Nursing Documentation Reviewed: Yes Vital Signs Reviewed: Yes - Physical Exam Appears: Positive for: No Acute Distress (sleeping comfortably but arousable to verbal stimuli ) Head Exam: Positive for: ATRAUMATIC Skin: Positive for: Normal Color, Warm, Dry Eye Exam: Positive for: Normal appearance, EOMI, PERRL Neck: Positive for: Normal, Painless ROM Cardiovascular/Chest: Positive for: Regular Rate, Rhythm. Negative for: Murmur , Bradycardia Respiratory: Positive for: Normal Breath Sounds. Negative for: Accessory Muscle Use, Respiratory Distress Gastrointestinal/Abdominal: Positive for: Normal Exam, Soft. Negative for: Tenderness Back: Positive for: Normal Inspection. Negative for: L CVA Tenderness, R CVA Tenderness, Vertebral Tenderness Extremity: Positive for: Normal ROM. Negative for: Pedal Edema, Deformity Neurologic/Psych: Positive for: Alert, Oriented (x3), Gait (steady) - ECG O2 Sat by Pulse Oximetry: 100 (RA) Pulse Ox Interpretation: Normal Medical Decision Making Medical Decision Making: Time: 820 -- Patient was able to walk with a steady gait. Patient is now stable for discharge. Scribe Attestation: Documented by Brian Grajeda acting as a scribe for Dr. Carolee Junior MD. Provider Scribe Attestation: All medical record entries made by the Scribe were at my direction and personally dictated by me. I have reviewed the chart and agree that the record accurately reflects my personal performance of the history, physical exam, medical decision making, and the department course for this patient. I have also personally directed, reviewed, and agree with the discharge instructions and disposition. Disposition - Clinical Impression Clinical Impression: Alcohol abuse - Disposition Referrals: [facility] [Outside] Disposition: Routine/Home Disposition Time: 08:22 Condition: STABLE Instructions: Alcohol Abuse and Alcoholism (DC) Forms: [facility] (Armenian), [facility] (Irish) Print Language: MALAGASY
[2017-11-11 08:32] VITALS: BP 140/78; PULSE 67; RESP 20; TEMP 98
== END 2017-11-11 08:25 | disposition home or self-care (01) ==
LOC: H.ER 07:07
DX: F10.129 Alcohol abuse with intoxication, unspecified (principal)

== ENCOUNTER 2017-11-11 11:12 | Inpatient (IN) | payer MEDICARE, OTHER ==
[2017-11-11 11:13] VITALS: BMI 40.6
[2017-11-11 13:11] LABS: BASO % 0.5 % (0.0-2.0); HEMOGLOBIN 12.9 g/dL (12.0-18.0); LYMPH # 0.7 K/uL (1.0-4.3); LYMPH % 27.1 % (20.0-40.0); MEAN CELL VOLUME 87.8 fl (80.0-94.0); MEAN CORPUSCULAR HEMOGLOBIN 30.5 pg (27.0-31.0); MEAN CORPUSCULAR HGB CONC 34.7 g/dL (33.0-37.0); MEAN PLATELET VOLUME 7.4 fl (7.2-11.7); MONO # 0.4 K/uL (0.0-0.8); MONO % 16.9 % (0.0-10.0); NEUT # 1.4 K/uL (1.8-7.0); NEUT % 54.5 % (50.0-75.0); NRBC % 0.3 % (0.0-0.0); RBC 4.22 Mil/uL (4.40-5.90); RED CELL DISTRIBUTION WIDTH 20.4 % (11.5-14.5); WHITE BLOOD COUNT 2.5 K/uL (4.8-10.8)
[2017-11-11 13:27] LABS: ALB/GLOB RATIO 0.6 (1.0-2.1); ALBUMIN 3.3 g/dL (3.5-5.0); ALT/SGPT 30 U/L (21-72); AST/SGOT 91 U/L (17-59); BLOOD UREA NITROGEN 5 mg/dl (9-20); CALCIUM 8.1 mg/dL (8.4-10.2); GFR NON-AFRICAN AMERICAN > 60; LIPASE 90 U/L (23-300)
[2017-11-11] MEDS ORDERED: Potassium Chloride 20 mEq ER Tab PO ONE (13:39)
[2017-11-11] MEDS: Potassium CL 10 MEQ/50 ML 50 ML IVPB SCH ×3 (13:46→15:45)
--- NOTE | 2017-11-11 14:19 | ED PDOC ---
HPI: General Adult Time Seen by Provider: 11/11/17 11:28 Chief Complaint (Nursing): Dizziness/Lightheaded Chief Complaint (Provider): Dizziness/Lightheaded History Per: Patient History/Exam Limitations: no limitations Onset/Duration Of Symptoms: Mins Current Symptoms Are (Timing): Still Present Additional Complaint(s): 47 y/o male with a PMHx of Atrial Fibrillation, CHF, Liver Disease and EtOH Abuse presents to the ED complaining of dizziness and vomiting associated with weakness, onset this morning. Patient reports he does not feel well thus prompting today's visit. Patient states that this is his 3rd visit since last night. Patient was here for alcohol intoxication last night. Patient however thinks he was not here before and believed that he went to [facility]. However, previous charts from earlier today show patient was in fact here at the [facility]. Patient states he did not want to go to the [facility] and wanted to return to [facility] but EMS brought him here. Patient reports he is compliant with medications. Patient is homeless and requesting a place to stay as well. Patient also reports that he suffers from depression and is compliant with medications. Denies rectal bleeding, chest pain, headache, suicidal ideation and homicidal ideation. PMD: Kristy Velasquez Past Medical History Reviewed: Historical Data, Nursing Documentation, Vital Signs Vital Signs: Last Vital Signs Temp 98.8 F 11/11/17 14:00 Pulse 92 H 11/11/17 15:28 Resp 20 11/11/17 14:00 BP 148/82 11/11/17 14:00 Pulse Ox 95 11/11/17 15:27 - Medical History PMH: Anxiety, Arthritis, Asthma, Atrial Fibrillation, Bipolar Disorder, CHF, COPD (ASTHMA), Depression, Gall Bladder Disease, HTN, Schizophrenia Denies: Diabetes, Hepatitis, HIV, Chronic Kidney Disease, Seizures, Sexually Transmitted Disease Other PMH: Liver Disease - Surgical History Surgical History: Appendectomy, Cholecystectomy Denies: CABG, Coronary Stent, Pacemaker, Tonsillectomy - Family History Family History: States: Unknown Family Hx - Social History Alcohol: > 2 Drinks/Day - Immunization History Hx Tetanus Toxoid Vaccination: No Hx Influenza Vaccination: No Hx Pneumococcal Vaccination: No - Home Medications Home Medications: Ambulatory Orders Medication Instructions Recorded Folic Acid 1 mg PO DAILY #0 tab 07/12/15 Fluticasone Nasal [Flonase] 2 spray NS DAILY PRN 04/26/17 Furosemide [Lasix] 20 mg PO BID #30 tab 04/29/17 Spironolactone [Aldactone] 25 mg PO DAILY #30 tab 04/29/17 Gabapentin [Neurontin] 400 mg PO TID 10/28/17 Albuterol Sulfate [Ventolin Hfa] 2 puff IH Q6 PRN 11/11/17 Aspirin [Ecotrin] 81 mg PO DAILY 11/11/17 Cilostazol [Pletal] 100 mg PO Q12 11/11/17 Famotidine [Pepcid] 40 mg PO DAILY 11/11/17 Lactulose [Generlac] 15 ml PO BID 11/11/17 Memantine [Namenda] 10 mg PO DAILY 11/11/17 Nitroglycerin [Nitrostat] 0.4 mg SL Q5MIN PRN 11/11/17 Sertraline [Zoloft] 25 mg PO DAILY 11/11/17 metOLazone [Zaroxolyn] 5 mg PO DAILY 11/11/17 rifAXIMin [Xifaxan] 550 mg PO Q12 11/11/17 - Allergies Allergies/Adverse Reactions: Allergies Allergy/AdvReac Type Severity Reaction Status Date / Time No Known Allergies Allergy Verified 11/11/17 07:10 Review of Systems ROS Statement: Except As Marked, All Systems Reviewed And Found Negative Cardiovascular: Negative for: Chest Pain Gastrointestinal: Positive for: Vomiting Neurological: Positive for: Dizziness. Negative for: Headache Physical Exam - Reviewed Nursing Documentation Reviewed: Yes Vital Signs Reviewed: Yes - Physical Exam Appears: Positive for: No Acute Distress Head Exam: Positive for: ATRAUMATIC, NORMOCEPHALIC Skin: Positive for: Normal Color, Warm, Dry Eye Exam: Positive for: Normal appearance, EOMI, PERRL Neck: Positive for: Normal, Painless ROM Cardiovascular/Chest: Positive for: Regular Rate, Rhythm. Negative for: Murmur Respiratory: Positive for: Normal Breath Sounds. Negative for: Respiratory Distress Gastrointestinal/Abdominal: Positive for: Normal Exam, Soft. Negative for: Tenderness Extremity: Positive for: Normal ROM. Negative for: Pedal Edema, Deformity Neurologic/Psych: Positive for: Alert, Oriented (x3). Negative for: Motor/ Sensory Deficits - Laboratory Results Result Diagrams: 11/11/17 13:00 11/11/17 13:00 - ECG ECG Rhythm: Positive for: Normal QRS, Sinus Rhythm, Nonspecific Changes Rate: 92 O2 Sat by Pulse Oximetry: 95 (RA) Pulse Ox Interpretation: Normal Medical Decision Making Medical Decision Making: Time: 1154 Impression: dizziness, vomiting, confusion, and EtOH intoxication Differentials include but not limited to hepatic encephalopathy, electrolyte abnormality, EtOH intoxication, and dehydration. Plan: -- Zofran 4 mg IV Time: 1300 Plan: -- Head CT w/o Contrast -- Urine Drug Screen -- Glucose, POC Routine -- CBC with differentials -- Lipase -- CMP -- Ammonia -- Alcohol Serum Time: 1354 -- Reviewed labs that show hypocalcemia and elevated ammonia. Time: 1400 Plan: -- Potassium Chloride 20 meq PO -- Potassium [CL 10 MEQ/50 ML STERILE WATER] 50 mL IVPB Q1 1 of 3 Bags Given -- Enulose 20 gm PO -- Magnesium -- EKG Time: [address] RESULTS FINDINGS: HEMORRHAGE: No intracranial hemorrhage. BRAIN: No mass effect or edema. No atrophy or chronic microvascular ischemic changes. VENTRICLES: Unremarkable. No hydrocephalus. CALVARIUM: Unremarkable. PARANASAL SINUSES: Unremarkable as visualized. No significant inflammatory changes. MASTOID AIR CELLS: Unremarkable as visualized. No inflammatory changes. OTHER FINDINGS: None. IMPRESSION: No acute intracranial abnormalities. No significant findings to account for the clinical presentation. No significant interval change compared to the prior examination(s). Scribe Attestation: Documented by Brian Grajeda acting as a scribe for Dr. Rm Rodriguez MD. Provider Scribe Attestation: All medical record entries made by the Scribe were at my direction and personally dictated by me. I have reviewed the chart and agree that the record accurately reflects my personal performance of the history, physical exam, medical decision making, and the department course for this patient. I have also personally directed, reviewed, and agree with the discharge instructions and disposition. Disposition - Clinical Impression Clinical Impression: Dizziness, Alcohol abuse, Alcoholic cirrhosis of liver, Hypomagnesemia, Hypokalemia, Hepatic encephalopathy - Patient ED Disposition Is Patient to be Admitted: Yes Discussed With Dr.: Murtaza Cheung Doctor Will See Patient In The: ED Counseled Patient/Family Regarding: Studies Performed, Diagnosis - Disposition Disposition Time: 14:00 Condition: FAIR - POA Present On Arrival: None
--- NOTE | 2017-11-11 14:52 | CT ---
Date of service: 11/11/2017 PROCEDURE: CT HEAD WITHOUT CONTRAST. HISTORY: Dizziness and vomiting. COMPARISON: 09/12/2016. TECHNIQUE: Axial computed tomography images were obtained through the head/brain without intravenous contrast. Coronal and sagittal reconstructed images. Radiation dose: Total exam DLP = 1003.16 mGy-cm. This CT exam was performed using one or more of the following dose reduction techniques: Automated exposure control, adjustment of the mA and/or kV according to patient size, and/or use of iterative reconstruction technique. FINDINGS: HEMORRHAGE: No intracranial hemorrhage. BRAIN: No mass effect or edema. No atrophy or chronic microvascular ischemic changes. VENTRICLES: Unremarkable. No hydrocephalus. CALVARIUM: Unremarkable. PARANASAL SINUSES: Unremarkable as visualized. No significant inflammatory changes. MASTOID AIR CELLS: Unremarkable as visualized. No inflammatory changes. OTHER FINDINGS: None. IMPRESSION: No acute intracranial abnormalities. No significant findings to account for the clinical presentation. No significant interval change compared to the prior examination(s).
[2017-11-11] MEDS ORDERED: Magnesium Sulfate 1 GM in Dextrose 5% In Water 100 ML IVPB ONE (15:25)
[2017-11-11] MEDS ORDERED: Albuterol HFA 90 mcg/actuation (8 g) IH PRN (15:37)
[2017-11-11] MEDS ORDERED: Multivitamin (MVI) 10 ML, Thiamine 100 MG, Folic Acid 1 MG in Dextrose 5%/0.45% NS 1,00... IV ONE (15:50)
--- NOTE | 2017-11-11 17:05 | CARD ---
APPROVED REPORT Date of service: 11/11/2017 EKG Measurement Heart [id number] <Conclusion> Sinus rhythm with premature atrial complexes ST & T wave abnormality, consider inferior ischemia ST & T wave abnormality, consider anterior ischemia Prolonged QT Abnormal ECG
[2017-11-11] MEDS: Potassium Chloride 20 mEq 100 ML IVPB SCH ×3 (17:25→21:47)
[2017-11-11 19:10] LABS: INR 1.6 (0.9-1.2); PROTHROMBIN TIME 17.8 Seconds (9.8-13.1)
[2017-11-11 21:05] LABS: HEPATITIS B SURFACE AG Negative (NEGATIVE)
[2017-11-11 21:11] LABS: HEPATITIS A IGM NEGATIVE (NEGATIVE); HEPATITIS B CORE AB NEGATIVE (NEGATIVE)
[2017-11-11 21:23] LABS: HEPATITIS C ANTIBODY NEGATIVE (NEGATIVE)
[2017-11-11 23:21] LABS: BARBITURATES, UR NEGATIVE (NEGATIVE); BENZODIAZEPINES, UR NEGATIVE (NEGATIVE); OPIATES, UR NEGATIVE (NEGATIVE); PHENCYCLIDINE, UR NEGATIVE (NEGATIVE)
[2017-11-12 05:39] LABS: BASO % 0.4 % (0.0-2.0); EOS # 0.1 K/uL (0.0-0.7); HEMOGLOBIN 11.6 g/dL (12.0-18.0); LYMPH # 0.8 K/uL (1.0-4.3); LYMPH % 27.5 % (20.0-40.0); MEAN CELL VOLUME 89.4 fl (80.0-94.0); MEAN CORPUSCULAR HEMOGLOBIN 30.3 pg (27.0-31.0); MEAN CORPUSCULAR HGB CONC 33.9 g/dL (33.0-37.0); MEAN PLATELET VOLUME 7.8 fl (7.2-11.7); MONO # 0.6 K/uL (0.0-0.8); MONO % 18.5 % (0.0-10.0); NEUT # 1.6 K/uL (1.8-7.0); NEUT % 50.6 % (50.0-75.0); NRBC % 0.2 % (0.0-0.0); RBC 3.82 Mil/uL (4.40-5.90); RED CELL DISTRIBUTION WIDTH 20.5 % (11.5-14.5); WHITE BLOOD COUNT 3.1 K/uL (4.8-10.8)
[2017-11-12 06:03] LABS: ALB/GLOB RATIO 0.5 (1.0-2.1); ALBUMIN 2.9 g/dL (3.5-5.0); ALT/SGPT 29 U/L (21-72); AST/SGOT 83 U/L (17-59); BLOOD UREA NITROGEN 6 mg/dl (9-20); CALCIUM 7.8 mg/dL (8.4-10.2); GFR NON-AFRICAN AMERICAN > 60
[2017-11-12] MEDS ORDERED: Potassium Chloride 20 mEq 100 ML IVPB ONE ×3 (06:14→08:14)
[2017-11-12] MEDS ORDERED: Potassium Phosphate 30 MMOLE in Sodium Chloride 0.9% 250 ML IV ONE (06:26)
--- NOTE | 2017-11-12 06:52 | CP.PCM.HP ---
History of Present Illness - History of Present Illness History of Present Illness: H&P from 11/11/17 HPI: 47 YO Male with PMHx of cirrhosis, HTN, HLD, PVD, anemia and chronic ETOH abuse presents to [facility] ED for weakness and generalized malaise. Pt states that for the past few days he has been feeling very tired, and weak. His symptoms worsened in the past few days with nausea and multiple bouts of emesis (NBNB). Denies chest pain, dyspnea, palpitations, abdominal pain, chills and fever. PMHx: cirrhosis, HTN, HLD, PVD, afib in the past, anemia and chronic ETOH abuse PSHx: appendectomy Allergies: NKDA Social: hx of smoking for years, ETOH drinks very often and about 7/8 beers at a time, last drink was about 3 days ago per pt. Denies illicit drug use Of note hx obtained from chart review and pt. Indemand used for translation, 1369 Ammonia 189 and ETOH 105 in ED Present on Admission - Present on Admission Any Indicators Present on Admission: No Review of Systems - Constitutional Constitutional: Malaise. absent: Chills, Fever - Cardiovascular Cardiovascular: absent: Chest Pain, Dyspnea - Respiratory Respiratory: absent: Cough, Dyspnea - Gastrointestinal Gastrointestinal: Nausea, Vomiting. absent: Abdominal Pain - Genitourinary Genitourinary: absent: Dysuria Past Patient History - Infectious Disease Hx of Infectious Diseases: None - Tetanus Immunizations Tetanus Immunization: Unknown - Past Medical History & Family History Past Medical History?: Yes - Past Social History Smoking Status: Current Some Days Smoker Alcohol: > 2 Drinks/Day Drugs: Denies Home Situation {Lives}: Homeless - CARDIAC Hx Cardiac Disorders: Yes Hx Atrial Fibrillation: Yes Hx Congestive Heart Failure: Yes Hx Hypertension: Yes Hx Pacemaker: No - PULMONARY Hx Respiratory Disorders: Yes Hx Asthma: Yes Hx Chronic Obstructive Pulmonary Disease (COPD): Yes (ASTHMA) - NEUROLOGICAL Hx Neurological Disorder: No Hx Dizziness: Yes Hx Seizures: No - HEENT Hx HEENT Problems: No - RENAL Hx Chronic Kidney Disease: No - ENDOCRINE/METABOLIC Hx Endocrine Disorders: No - HEMATOLOGICAL/ONCOLOGICAL Hx Blood Disorders: No Hx AIDS: No Hx Human Immunodeficiency Virus (HIV): No - INTEGUMENTARY Hx Dermatological Problems: No - MUSCULOSKELETAL/RHEUMATOLOGICAL Hx Musculoskeletal Disorders: Yes Hx Arthritis: Yes Hx Falls: Yes - GASTROINTESTINAL Hx Gastrointestinal Disorders: Yes Hx Gall Bladder Disease: Yes - GENITOURINARY/GYNECOLOGICAL Hx Genitourinary Disorders: No Hx Sexually Transmitted Disorders: No - PSYCHIATRIC Hx Psychophysiologic Disorder: Yes Hx Anxiety: Yes Hx Bipolar Disorder: Yes Hx Depression: Yes Hx Schizophrenia: Yes Hx Substance Use: No - SURGICAL HISTORY Hx Surgeries: Yes Hx Appendectomy: Yes Hx Cholecystectomy: Yes Hx Coronary Artery Bypass Graft: No Hx Coronary Stent: No Hx Tonsillectomy: No - ANESTHESIA Hx Anesthesia: Yes Hx Anesthesia Reactions: No Hx Malignant Hyperthermia: No Has any member of the family had a problem w/ anesthesia?: No Meds Allergies/Adverse Reactions: Allergies Allergy/AdvReac Type Severity Reaction Status Date / Time No Known Allergies Allergy Verified 11/11/17 07:10 Physical Exam - Constitutional Appears: No Acute Distress, Other (sleepy and lethergic ) - Head Exam Head Exam: NORMAL INSPECTION - ENT Exam ENT Exam: Mucous Membranes Moist - Respiratory Exam Respiratory Exam: NORMAL BREATHING PATTERN. absent: Rales, Wheezes - Cardiovascular Exam Cardiovascular Exam: REGULAR RHYTHM, +S1, +S2 - GI/Abdominal Exam GI & Abdominal Exam: Diminished Bowel Sounds, Distended, Soft. absent: Guarding , Rebound, Rigid Additional comments: fluid wave positive - Extremities Exam Additional comments: chronic dermatic changes with edema b/l in the lower extremities + asterixis - Neurological Exam Neurological exam: Alert Additional comments: patient is lethargic and confused about location and month oriented to name and year Results - Vital Signs Recent Vital Signs: Last Vital Signs Temp 98.8 F 11/12/17 05:08 Pulse 94 H 11/12/17 05:08 Resp 18 11/12/17 05:08 BP 128/73 11/12/17 05:08 Pulse Ox 100 11/12/17 05:08 - Labs Result Diagrams: 11/12/17 05:09 11/12/17 05:09 Labs: Laboratory Results - last 24 hr 11/11/17 11/11/17 11/11/17 12:10 13:00 13:00 WBC 2.5 L RBC 4.22 L Hgb 12.9 Hct 37.1 MCV 87.8 MCH 30.5 MCHC 34.7 RDW 20.4 H Plt Count 119 L D MPV 7.4 Neut % (Auto) 54.5 Lymph % (Auto) 27.1 [place] % (Auto) 16.9 H Eos % (Auto) 1.0 Baso % (Auto) 0.5 Neut # (Auto) 1.4 L Lymph # (Auto) 0.7 L [place] # (Auto) 0.4 Eos # (Auto) 0.0 Baso # (Auto) 0.0 PT INR Sodium 134 Potassium 2.3 L* D Chloride 94 L Carbon Dioxide 25 Anion Gap 17 BUN 5 L Creatinine 0.6 L Est GFR ( Amer) > 60 Est GFR (Non-Af Amer) > 60 POC Glucose (mg/dL) 104 Random Glucose 103 Calcium 8.1 L Phosphorus Magnesium Total Bilirubin 3.0 H AST 91 H ALT 30 Alkaline Phosphatase 185 H D Ammonia Total Protein 9.1 H Albumin 3.3 L Globulin 5.8 H Albumin/Globulin Ratio 0.6 L Lipase 90 Urine Opiates Screen Urine Methadone Screen Ur Barbiturates Screen Ur Phencyclidine Scrn Ur Amphetamines Screen U Benzodiazepines Scrn U Oth Cocaine Metabols U Cannabinoids Screen Alcohol, Quantitative 105 H Hepatitis A IgM Ab Hep Bs Antigen Hep B Core IgM Ab Hepatitis C Antibody 11/11/17 11/11/17 11/11/17 13:00 14:00 17:30 WBC RBC Hgb Hct MCV MCH MCHC RDW Plt Count MPV Neut % (Auto) Lymph % (Auto) [place] % (Auto) Eos % (Auto) Baso % (Auto) Neut # (Auto) Lymph # (Auto) [place] # (Auto) Eos # (Auto) Baso # (Auto) PT INR Sodium Potassium Chloride Carbon Dioxide Anion Gap BUN Creatinine Est GFR ( Amer) Est GFR (Non-Af Amer) POC Glucose (mg/dL) Random Glucose Calcium Phosphorus Magnesium 1.4 L Total Bilirubin AST ALT Alkaline Phosphatase Ammonia 189 H* D Total Protein Albumin Globulin Albumin/Globulin Ratio Lipase Urine Opiates Screen Urine Methadone Screen Ur Barbiturates Screen Ur Phencyclidine Scrn Ur Amphetamines Screen U Benzodiazepines Scrn U Oth Cocaine Metabols U Cannabinoids Screen Alcohol, Quantitative Hepatitis A IgM Ab Negative Hep Bs Antigen Negative Hep B Core IgM Ab Negative Hepatitis C Antibody Negative 11/11/17 11/11/17 11/12/17 18:55 22:46 05:09 WBC 3.1 L RBC 3.82 L Hgb 11.6 L Hct 34.2 L MCV 89.4 MCH 30.3 MCHC 33.9 RDW 20.5 H Plt Count 102 L MPV 7.8 Neut % (Auto) 50.6 Lymph % (Auto) 27.5 [place] % (Auto) 18.5 H Eos % (Auto) 3.0 Baso % (Auto) 0.4 Neut # (Auto) 1.6 L Lymph # (Auto) 0.8 L [place] # (Auto) 0.6 Eos # (Auto) 0.1 Baso # (Auto) 0.0 PT 17.8 H INR 1.6 H Sodium Potassium Chloride Carbon Dioxide Anion Gap BUN Creatinine Est GFR ( Amer) Est GFR (Non-Af Amer) POC Glucose (mg/dL) Random Glucose Calcium Phosphorus Magnesium Total Bilirubin AST ALT Alkaline Phosphatase Ammonia Total Protein Albumin Globulin Albumin/Globulin Ratio Lipase Urine Opiates Screen Negative Urine Methadone Screen Negative Ur Barbiturates Screen Negative Ur Phencyclidine Scrn Negative Ur Amphetamines Screen Negative U Benzodiazepines Scrn Negative U Oth Cocaine Metabols Negative U Cannabinoids Screen Negative Alcohol, Quantitative Hepatitis A IgM Ab Hep Bs Antigen Hep B Core IgM Ab Hepatitis C Antibody 11/12/17 05:09 WBC RBC Hgb Hct MCV MCH MCHC RDW Plt Count MPV Neut % (Auto) Lymph % (Auto) [place] % (Auto) Eos % (Auto) Baso % (Auto) Neut # (Auto) Lymph # (Auto) [place] # (Auto) Eos # (Auto) Baso # (Auto) PT INR Sodium 134 Potassium 2.3 L* Chloride 96 L Carbon Dioxide 28 Anion Gap 12 BUN 6 L Creatinine 0.6 L Est GFR ( Amer) > 60 Est GFR (Non-Af Amer) > 60 POC Glucose (mg/dL) Random Glucose 109 Calcium 7.8 L Phosphorus 2.0 L Magnesium 1.6 Total Bilirubin 3.4 H AST 83 H ALT 29 Alkaline Phosphatase 168 H Ammonia Total Protein 8.4 H Albumin 2.9 L Globulin 5.4 H Albumin/Globulin Ratio 0.5 L Lipase Urine Opiates Screen Urine Methadone Screen Ur Barbiturates Screen Ur Phencyclidine Scrn Ur Amphetamines Screen U Benzodiazepines Scrn U Oth Cocaine Metabols U Cannabinoids Screen Alcohol, Quantitative Hepatitis A IgM Ab Hep Bs Antigen Hep B Core IgM Ab Hepatitis C Antibody Assessment & Plan (1) Hepatic encephalopathy Status: Acute (2) Hypokalemia Status: Acute (3) Hypomagnesemia Status: Resolved (4) Alcoholic cirrhosis of liver Status: Chronic (5) Alcohol abuse with intoxication Status: Acute (6) Hypertension Status: Chronic (7) PVD (peripheral vascular disease) Status: Chronic - Assessment and Plan (Free Text) Assessment: Assessment/Plan: 47 YO Male with PMHx of cirrhosis, HTN, HLD, PVD, anemia and chronic ETOH abuse is admitted for hepatic encephalopathy, hypokalemia. -GI consulted; hep panel neg -pending u/s abd -hypokalemia persists after 90meq of K; will replace as needed -EKG; prolong QT with ST changes and PACs -repeat ekg this AM -lactulose until 2-3 BM/day -MELD score 18, 6% 3 month mortality -CIWA on admission 7; today 3 -CIWA protocol; with ativan prn -CT Head no intracranial abnormalities -blood work reviewed, VS stable -Plan as ordered Pt seen and examined with Dr. Cheung
[2017-11-12 07:08] LABS: INR 1.7 (0.9-1.2); PARTIAL THROMBOPLASTIN TIME 33.7 Seconds (25.6-37.1); PROTHROMBIN TIME 19.4 Seconds (9.8-13.1)
[2017-11-12] MEDS ORDERED: Potassium Chloride 20 mEq 100 ML IVPB SCH (08:00)
[2017-11-12] MEDS: Cilostazol 100 mg Tab UD PO SCH ×2 (08:56→22:00)
--- NOTE | 2017-11-12 11:29 | US ---
Date of service: 11/12/2017 HISTORY: vomiting, elevated LFT levels COMPARISON: Abdomen pelvis CT examination 01/16/2017. TECHNIQUE: Sonographic evaluation of the abdomen. FINDINGS: Study is compromised by body habitus overall. LIVER: Measures 16.0 cm. No definitive hepatic lesion is seen throughout the liver as imaged with hepatic parenchyma appearing mildly inhomogeneous in overall echotexture. Slightly nodular peripheral pattern reiterates cirrhosis. Normal directional blood flow identified at the portal vein. GALLBLADDER: Unremarkable. No gallstones. COMMON BILE DUCT: Measures 6.5 mm. No stones. No dilatation. PANCREAS: Pancreas is not identified due to body habitus and extensive overlying bowel gas. RIGHT KIDNEY: Measures 11.9cm. Normal echogenicity. No calculus, mass, or hydronephrosis. LEFT KIDNEY: Measures 12.9cm. Normal echogenicity. No calculus, mass, or hydronephrosis. SPLEEN: Spleen is enlarged without demonstrated mass associated. Spleen measures 17.6 cm maximum dimension. AORTA: Proximal to mid abdominal aorta is identified with the just distal segment not seen. The visualize segments appear patent. IVC: Proximal inferior vena cava appears patent with the remainder obscured. OTHER FINDINGS: None. IMPRESSION: 1. Limited examination due to body habitus. Splenomegaly is reiterated, without focal splenic mass associated. 2. Cirrhotic liver pattern suggested though not as prominent as prior CT 01/16/2017. This is likely a function of differences in technology/body habitus. Normal directional blood flow at the main portal vein. Mildly inhomogeneous but nonfocal hepatic echotexture. 3. Pancreas is completely obscured by overlying bowel gas. 4. Unremarkable gallbladder with upper limits normal caliber CBD at 6.5 mm.
--- NOTE | 2017-11-12 13:39 | CP.PCM.CON ---
<Vivian Herron - Last Filed: 11/12/17 13:57> History of Present Illness - History of Present Illness History of Present Illness: PGY5 Initial GI Consult Vinicio Coyne is a 46yo male with PMHx significant for EtOH cirrhosis, recent TIA, HTN, HLD who presented to the ED to for lethary and weakness. According to the pt and EMR, he has had a long standing diag of liver cirrhosis, etiology likely Etoh. He states that he does not follow-up with GI. He notes that his PCP was trying to coordinate is diagnosis and tx. He reports going to [facility] in [place], [place] many years ago for work-up, but never followed up. Previous hospitalization post fall. He had a triple phase liver CT done at the time on 11/2016 and it did not reveal any sig. mass indicating HCC. Pt denies any abd pain. He notes that he occasionally sees blood on his toilet paper after wiping and straining. He has never had any endoscopy. States that his last drink was prior to admission. Denies any hematemesis, pruritus, jaundice, nausea, vomiting, weight loss. PMHx: See HPI PSHx: Appendectomy FHx: Discussed with patient and denies any significant FHx Social: Prior EtOH abuse (quit end of August following recent admission); Denies tobacco or illicit drug use Endo: No prior endoscopic evaluations 12-point ROS conducted, neg other than previously stated above Past Patient History - Infectious Disease Hx of Infectious Diseases: None - Tetanus Immunizations Tetanus Immunization: Unknown - Past Medical History & Family History Past Medical History?: Yes - Past Social History Smoking Status: Current Some Days Smoker Alcohol: > 2 Drinks/Day Drugs: Denies Home Situation {Lives}: Homeless - CARDIAC Hx Cardiac Disorders: Yes Hx Atrial Fibrillation: Yes Hx Congestive Heart Failure: Yes Hx Hypertension: Yes Hx Pacemaker: No - PULMONARY Hx Respiratory Disorders: Yes Hx Asthma: Yes Hx Chronic Obstructive Pulmonary Disease (COPD): Yes (ASTHMA) - NEUROLOGICAL Hx Neurological Disorder: No Hx Dizziness: Yes Hx Seizures: No - HEENT Hx HEENT Problems: No - RENAL Hx Chronic Kidney Disease: No - ENDOCRINE/METABOLIC Hx Endocrine Disorders: No - HEMATOLOGICAL/ONCOLOGICAL Hx Blood Disorders: No Hx AIDS: No Hx Human Immunodeficiency Virus (HIV): No - INTEGUMENTARY Hx Dermatological Problems: No - MUSCULOSKELETAL/RHEUMATOLOGICAL Hx Musculoskeletal Disorders: Yes Hx Arthritis: Yes Hx Falls: Yes - GASTROINTESTINAL Hx Gastrointestinal Disorders: Yes Hx Gall Bladder Disease: Yes - GENITOURINARY/GYNECOLOGICAL Hx Genitourinary Disorders: No Hx Sexually Transmitted Disorders: No - PSYCHIATRIC Hx Psychophysiologic Disorder: Yes Hx Anxiety: Yes Hx Bipolar Disorder: Yes Hx Depression: Yes Hx Schizophrenia: Yes Hx Substance Use: No - SURGICAL HISTORY Hx Surgeries: Yes Hx Appendectomy: Yes Hx Cholecystectomy: Yes Hx Coronary Artery Bypass Graft: No Hx Coronary Stent: No Hx Tonsillectomy: No - ANESTHESIA Hx Anesthesia: Yes Hx Anesthesia Reactions: No Hx Malignant Hyperthermia: No Has any member of the family had a problem w/ anesthesia?: No Meds Allergies/Adverse Reactions: Allergies Allergy/AdvReac Type Severity Reaction Status Date / Time No Known Allergies Allergy Verified 11/11/17 07:10 - Medications Medications: Current Medications Albuterol (Ventolin Hfa 90 Mcg/Actuation (8 G)) 2 puff IH Q6 PRN PRN Reason: Shortness of Breath Aspirin (Ecotrin) 81 mg PO DAILY [facility] Last Admin: 11/12/17 08:56 Dose: 81 mg Cilostazol (Pletal) 100 mg PO Q12 [facility] Last Admin: 11/12/17 08:56 Dose: 100 mg Famotidine (Pepcid) 40 mg PO DAILY [facility] Last Admin: 11/12/17 08:56 Dose: 40 mg Folic Acid (Folic Acid) 1 mg PO DAILY [facility] Last Admin: 11/12/17 08:56 Dose: 1 mg Furosemide (Lasix) 20 mg PO BID [facility] Last Admin: 11/12/17 08:57 Dose: 20 mg Lactulose (Enulose) 20 gm PO QID [facility] Last Admin: 11/12/17 08:57 Dose: 20 gm Lorazepam (Ativan) 2 mg IVP Q6 PRN PRN Reason: Agitation Nitroglycerin (Nitrostat Sl Tab) 0.4 mg SL Q5MIN PRN PRN Reason: chest pain Ondansetron HCl (Zofran Inj) 4 mg IVP Q6 PRN PRN Reason: Nausea/Vomiting Potassium Chloride (K-Dur 20 Meq Er Tab) 20 meq PO QID [facility] Stop: 11/13/17 09:01 Rifaximin (Xifaxan) 550 mg PO Q12 [facility] PRN Reason: Protocol Last Admin: 11/12/17 08:55 Dose: 550 mg Physical Exam - Constitutional Appears: Non-toxic, No Acute Distress - Head Exam Head Exam: ATRAUMATIC, NORMOCEPHALIC - Eye Exam Eye Exam: Normal appearance - ENT Exam ENT Exam: Mucous Membranes Moist, Normal Exam - Neck Exam Neck exam: Positive for: Normal Inspection - Respiratory Exam Respiratory Exam: Clear to Auscultation Bilateral, NORMAL BREATHING PATTERN. absent: Prolonged Expiratory Phase, Rales, Rhonchi, Wheezes, Respiratory Distress - Cardiovascular Exam Cardiovascular Exam: REGULAR RHYTHM, +S1, +S2 - GI/Abdominal Exam GI & Abdominal Exam: Normal Bowel Sounds, Soft. absent: Distended, Firm, Guarding, Organomegaly, Rebound, Rigid - Extremities Exam Extremities exam: Negative for: joint swelling, pedal edema - Neurological Exam Neurological exam: Altered, Oriented x3 - Skin Skin Exam: Dry, Intact, Normal Color, Warm Results - Vital Signs Recent Vital Signs: Last Vital Signs Temp 98.1 F 11/12/17 12:02 Pulse 87 11/12/17 12:02 Resp 18 11/12/17 12:02 BP 112/66 11/12/17 12:02 Pulse Ox 100 11/12/17 12:02 - Labs Result Diagrams: 11/12/17 05:09 11/12/17 05:09 Labs: Laboratory Results - last 24 hr 11/11/17 11/11/17 11/11/17 14:00 17:30 18:55 WBC RBC Hgb Hct MCV MCH MCHC RDW Plt Count MPV Neut % (Auto) Lymph % (Auto) [place] % (Auto) Eos % (Auto) Baso % (Auto) Neut # (Auto) Lymph # (Auto) [place] # (Auto) Eos # (Auto) Baso # (Auto) PT 17.8 H INR 1.6 H APTT Sodium Potassium Chloride Carbon Dioxide Anion Gap BUN Creatinine Est GFR ( Amer) Est GFR (Non-Af Amer) Random Glucose Calcium Phosphorus Magnesium 1.4 L Total Bilirubin AST ALT Alkaline Phosphatase Ammonia Total Protein Albumin Globulin Albumin/Globulin Ratio Urine Opiates Screen Urine Methadone Screen Ur Barbiturates Screen Ur Phencyclidine Scrn Ur Amphetamines Screen U Benzodiazepines Scrn U Oth Cocaine Metabols U Cannabinoids Screen Hepatitis A IgM Ab Negative Hep Bs Antigen Negative Hep B Core IgM Ab Negative Hepatitis C Antibody Negative 07/11/12/17 11/12/17 22:46 05:09 05:09 WBC 3.1 L RBC 3.82 L Hgb 11.6 L Hct 34.2 L MCV 89.4 MCH 30.3 MCHC 33.9 RDW 20.5 H Plt Count 102 L MPV 7.8 Neut % (Auto) 50.6 Lymph % (Auto) 27.5 [place] % (Auto) 18.5 H Eos % (Auto) 3.0 Baso % (Auto) 0.4 Neut # (Auto) 1.6 L Lymph # (Auto) 0.8 L [place] # (Auto) 0.6 Eos # (Auto) 0.1 Baso # (Auto) 0.0 PT INR APTT Sodium 134 Potassium 2.3 L* Chloride 96 L Carbon Dioxide 28 Anion Gap 12 BUN 6 L Creatinine 0.6 L Est GFR ( Amer) > 60 Est GFR (Non-Af Amer) > 60 Random Glucose 109 Calcium 7.8 L Phosphorus 2.0 L Magnesium 1.6 Total Bilirubin 3.4 H AST 83 H ALT 29 Alkaline Phosphatase 168 H Ammonia Total Protein 8.4 H Albumin 2.9 L Globulin 5.4 H Albumin/Globulin Ratio 0.5 L Urine Opiates Screen Negative Urine Methadone Screen Negative Ur Barbiturates Screen Negative Ur Phencyclidine Scrn Negative Ur Amphetamines Screen Negative U Benzodiazepines Scrn Negative U Oth Cocaine Metabols Negative U Cannabinoids Screen Negative Hepatitis A IgM Ab Hep Bs Antigen Hep B Core IgM Ab Hepatitis C Antibody 11/12/17 11/12/17 05:09 06:30 WBC RBC Hgb Hct MCV MCH MCHC RDW Plt Count MPV Neut % (Auto) Lymph % (Auto) [place] % (Auto) Eos % (Auto) Baso % (Auto) Neut # (Auto) Lymph # (Auto) [place] # (Auto) Eos # (Auto) Baso # (Auto) PT 19.4 H INR 1.7 H APTT 33.7 Sodium Potassium Chloride Carbon Dioxide Anion Gap BUN Creatinine Est GFR ( Amer) Est GFR (Non-Af Amer) Random Glucose Calcium Phosphorus Magnesium Total Bilirubin AST ALT Alkaline Phosphatase Ammonia 167 H* Total Protein Albumin Globulin Albumin/Globulin Ratio Urine Opiates Screen Urine Methadone Screen Ur Barbiturates Screen Ur Phencyclidine Scrn Ur Amphetamines Screen U Benzodiazepines Scrn U Oth Cocaine Metabols U Cannabinoids Screen Hepatitis A IgM Ab Hep Bs Antigen Hep B Core IgM Ab Hepatitis C Antibody Assessment & Plan - Assessment and Plan (Free Text) Assessment: Aman Coyne is a 46M w/ hx of Cirrohsis 2/2 Etoh who presented to the ED for AMS and weakness Hepatic encephalopathy ETOH cirrhosis, admission MELD 27 HTN Hyperlipidemia Morbid obesity hx of TIA Plan: -unreliable hx of etoh use -pt will eventually need a colonoscopy and endoscopy as an oupt -recommend low salt diet -could not appreciate sig ascities on abd exam, no indication for abd paracentesis at this time -explained the importance of Etoh abstinence with video interp, pt acknowledged understanding -lasix 40mg daily, aldactone 100mg daily upon discharge -abd u/s did not reveal and hepatic mass, + cirrhotic changes -continue lactulose BID to QID, until at least 2-3 BM daily -continue xifaxan D/W Dr. Schneider <Leland Breen - Last Filed: 11/29/17 11:28> Results - Vital Signs Recent Vital Signs: Last Vital Signs Temp 98.2 F 11/15/17 12:36 Pulse 99 H 11/15/17 12:36 Resp 20 11/15/17 12:36 BP 114/69 11/15/17 12:36 Pulse Ox 100 11/15/17 12:36 - Labs Result Diagrams: 11/15/17 04:20 11/15/17 04:20 Assessment & Plan - Assessment and Plan (Free Text) Assessment: patient seen and examined and agree with above Leland Breen MD, PhD
[2017-11-12] MEDS: Potassium Chloride 20 mEq ER Tab PO SCH ×3 (13:47→21:59)
[2017-11-13 07:30] LABS: BASO % 0.6 % (0.0-2.0); EOS # 0.2 K/uL (0.0-0.7); HEMOGLOBIN 12.7 g/dL (12.0-18.0); LYMPH # 0.9 K/uL (1.0-4.3); LYMPH % 35.8 % (20.0-40.0); MEAN CELL VOLUME 91.5 fl (80.0-94.0); MEAN CORPUSCULAR HEMOGLOBIN 30.6 pg (27.0-31.0); MEAN CORPUSCULAR HGB CONC 33.5 g/dL (33.0-37.0); MEAN PLATELET VOLUME 7.6 fl (7.2-11.7); MONO # 0.5 K/uL (0.0-0.8); MONO % 20.3 % (0.0-10.0); NEUT % 37.3 % (50.0-75.0); NRBC % 0.1 % (0.0-0.0); PLATELET COUNT 103 K/uL (130-400); RBC 4.15 Mil/uL (4.40-5.90); RED CELL DISTRIBUTION WIDTH 20.6 % (11.5-14.5); WHITE BLOOD COUNT 2.6 K/uL (4.8-10.8)
[2017-11-13 08:16] LABS: ALB/GLOB RATIO 0.6 (1.0-2.1); ALBUMIN 3.2 g/dL (3.5-5.0); ALT/SGPT 28 U/L (21-72); AST/SGOT 92 U/L (17-59); BLOOD UREA NITROGEN 6 mg/dl (9-20); CALCIUM 7.9 mg/dL (8.4-10.2); GFR NON-AFRICAN AMERICAN > 60
[2017-11-13 09:20] LABS: BASOPHIL 1 % (0-2); EOSINOPHIL 4 % (0-7); LYMPHOCYTE 35 % (20-50); MONOCYTE 16 % (0-10); NEUTROPHIL 44 % (42-75); TOTAL CELLS COUNTED 100
[2017-11-13 09:21] LABS: PLATELET ESTIMATE SLIGHTLY DECREASED (NORMAL)
[2017-11-13 09:22] LABS: ANISOCYTOSIS SLIGHT; LARGE PLATELETS PRESENT; OVALOCYTES SLIGHT; POIKILOCYTOSIS SLIGHT
[2017-11-13] MEDS: Cilostazol 100 mg Tab UD PO SCH ×2 (10:04→21:29)
[2017-11-13] MEDS: Potassium Chloride 20 mEq ER Tab PO SCH (10:05)
--- NOTE | 2017-11-13 13:48 | PN ---
DATE: 11/13/2017 SUBJECTIVE: The patient is seen and examined. The patient seen for Dr. Cheung while he is away. The patient is awake, responsive, and feels okay. Denies any chest pain, shortness of breath, dizziness, or palpitation. PHYSICAL EXAMINATION: GENERAL: The patient is in no acute distress. VITAL SIGNS: Stable. HEART: S1 and S2, normal and regular. LUNGS: Good bilateral air exchange. ABDOMEN: Soft and nontender. EXTREMITIES: No edema. No calf swelling. No tenderness. No acute ischemia. 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 DIAGNOSTIC DATA: Available diagnostic data reviewed . ASSESSMENT AND PLAN: Overall, the patient's general medical condition . Maninder Wang MD
--- NOTE | 2017-11-13 20:31 | CARD ---
APPROVED REPORT Date of service: 11/12/2017 EKG Measurement Heart [id number] <Conclusion> Normal sinus rhythm Possible Left atrial enlargement Nonspecific ST and T wave abnormality Prolonged QT Abnormal ECG
[2017-11-14 07:21] LABS: MEAN CELL VOLUME 91.1 fl (80.0-94.0); MEAN CORPUSCULAR HEMOGLOBIN 30.9 pg (27.0-31.0); MEAN CORPUSCULAR HGB CONC 33.9 g/dL (33.0-37.0); RBC 3.87 Mil/uL (4.40-5.90); RED CELL DISTRIBUTION WIDTH 20.3 % (11.5-14.5)
[2017-11-14 07:59] LABS: ALB/GLOB RATIO 0.5 (1.0-2.1); ALBUMIN 2.9 g/dL (3.5-5.0); ALT/SGPT 21 U/L (21-72); AST/SGOT 77 U/L (17-59); BLOOD UREA NITROGEN 6 mg/dl (9-20); CALCIUM 7.4 mg/dL (8.4-10.2); GFR NON-AFRICAN AMERICAN > 60
[2017-11-14] MEDS: Potassium Chloride 20 mEq ER Tab PO SCH (09:02)
[2017-11-14] MEDS: Cilostazol 100 mg Tab UD PO SCH ×2 (09:05→22:31)
[2017-11-14] MEDS: Potassium CL 10 MEQ/50 ML 50 ML IVPB SCH ×4 (09:06→12:10)
--- NOTE | 2017-11-14 13:15 | PN ---
DATE: 11/14/2017 SUBJECTIVE: The patient seen and examined. Interim events noted. The patient remains in progressive care unit on telemetry monitoring. The patient feels okay. Denies any chest pain or shortness of breath. Abdominal pain is controlled. PHYSICAL EXAMINATION: GENERAL: The patient is in no acute distress. VITAL SIGNS: Stable. HEART: S1 and S2. Normal and regular. LUNGS: Good bilateral air exchange. ABDOMEN: Distended but nonacute. No guarding. No rigidity. No rebound. Bowel sounds are plus and normal. There is no organomegaly. EXTREMITIES: No edema. No calf swelling. No tenderness. No acute ischemia. 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 DIAGNOSTIC DATA: Available diagnostic data reviewed. Ammonia level is 123. ASSESSMENT AND PLAN: Overall, the patient's general medical condition is stable and improving. Plan as ordered. Maninder Wang MD
[2017-11-15 06:05] LABS: HEMOGLOBIN 11.5 g/dL (12.0-18.0); MEAN CELL VOLUME 91.3 fl (80.0-94.0); MEAN CORPUSCULAR HEMOGLOBIN 31.2 pg (27.0-31.0); MEAN CORPUSCULAR HGB CONC 34.2 g/dL (33.0-37.0); RBC 3.69 Mil/uL (4.40-5.90); RED CELL DISTRIBUTION WIDTH 20.6 % (11.5-14.5); WHITE BLOOD COUNT 3.8 K/uL (4.8-10.8)
[2017-11-15 06:44] LABS: ALB/GLOB RATIO 0.5 (1.0-2.1); ALBUMIN 2.8 g/dL (3.5-5.0); ALT/SGPT 30 U/L (21-72); AST/SGOT 78 U/L (17-59); BLOOD UREA NITROGEN 9 mg/dl (9-20); CALCIUM 7.9 mg/dL (8.4-10.2); GFR NON-AFRICAN AMERICAN > 60
[2017-11-15] MEDS: Potassium Chloride 20 mEq ER Tab PO SCH (09:00)
[2017-11-15] MEDS: Cilostazol 100 mg Tab UD PO SCH (09:02)
--- NOTE | 2017-11-15 12:18 | CP.PCM.PN ---
Subjective - Date & Time of Evaluation Date of Evaluation: 11/15/17 Time of Evaluation: 12:16 - Subjective Subjective: no overnight events Objective - Vital Signs/Intake and Output Vital Signs (last 24 hours): Temp Pulse Resp BP Pulse Ox 98.1 F 89 18 125/84 98 11/15/17 04:00 11/15/17 04:00 11/15/17 04:00 11/15/17 09:01 11/15/17 04:00 - Medications Medications: Current Medications Albuterol (Ventolin Hfa 90 Mcg/Actuation (8 G)) 2 puff IH Q6 PRN PRN Reason: Shortness of Breath Aspirin (Ecotrin) 81 mg PO DAILY [facility] Last Admin: 11/15/17 08:59 Dose: 81 mg Cilostazol (Pletal) 100 mg PO Q12 MARK Last Admin: 11/15/17 09:02 Dose: 100 mg Famotidine (Pepcid) 40 mg PO DAILY [facility] Last Admin: 11/15/17 09:01 Dose: 40 mg Folic Acid (Folic Acid) 1 mg PO DAILY [facility] Last Admin: 11/15/17 09:00 Dose: 1 mg Furosemide (Lasix) 20 mg PO BID [facility] Last Admin: 11/15/17 09:01 Dose: 20 mg Lactulose (Enulose) 20 gm PO QID [facility] Last Admin: 11/15/17 09:00 Dose: 20 gm Lorazepam (Ativan) 2 mg IVP Q6 PRN PRN Reason: Agitation Nitroglycerin (Nitrostat Sl Tab) 0.4 mg SL Q5MIN PRN PRN Reason: chest pain Ondansetron HCl (Zofran Inj) 4 mg IVP Q6 PRN PRN Reason: Nausea/Vomiting Potassium Chloride (K-Dur 20 Meq Er Tab) 60 meq PO DAILY [facility] Last Admin: 11/15/17 09:00 Dose: 60 meq Rifaximin (Xifaxan) 550 mg PO Q12 MARK PRN Reason: Protocol Last Admin: 11/15/17 09:02 Dose: 550 mg - Labs Labs: 11/15/17 04:20 11/15/17 04:20 PT 19.4 Seconds (9.8-13.1) H 11/12/17 05:09 INR 1.7 (0.9-1.2) H 11/12/17 05:09 APTT 33.7 Seconds (25.6-37.1) 11/12/17 05:09 - Head Exam Head Exam: NORMAL INSPECTION, NORMOCEPHALIC - Neck Exam Neck Exam: Normal Inspection - Cardiovascular Exam Cardiovascular Exam: REGULAR RHYTHM - GI/Abdominal Exam GI & Abdominal Exam: Soft, Normal Bowel Sounds Assessment and Plan - Assessment and Plan (Free Text) Assessment: 47 yo male with EtOH doing well no new GI issues dc planning when able
[2017-11-15 12:37] VITALS: BP 114/69; PULSE 99; RESP 20; TEMP 98.2; O2SAT 100
== END 2017-11-15 14:39 | disposition home or self-care (01) | DRG 433 ==
LOC: SUPCPDRO 11:12 → H.ER 11:12 → H.ERHOLD 14:20 → H.TEL 15:59
PROVIDERS: ADMIT Family Medicine; ATTEND Family Medicine
DX: K70.30 Alcoholic cirrhosis of liver without ascites (principal); Z68.42 Body mass index [BMI] 45.0-49.9, adult; K72.90 Hepatic failure, unspecified without coma; E87.6 Hypokalemia; E83.42 Hypomagnesemia; F10.129 Alcohol abuse with intoxication, unspecified; E66.01 Morbid (severe) obesity due to excess calories; F31.9 Bipolar disorder, unspecified; E78.5 Hyperlipidemia, unspecified; I11.0 Hypertensive heart disease with heart failure; I50.9 Heart failure, unspecified; E83.51 Hypocalcemia; I48.91 Unspecified atrial fibrillation; I73.9 Peripheral vascular disease, unspecified; J44.9 Chronic obstructive pulmonary disease, unspecified; F20.9 Schizophrenia, unspecified; Y90.5 Blood alcohol level of 100-119 mg/100 ml; F41.9 Anxiety disorder, unspecified; F17.210 Nicotine dependence, cigarettes, uncomplicated; D64.9 Anemia, unspecified; Z86.73 Personal history of transient ischemic attack (TIA), and cerebral infarction without residual deficits; Z79.82 Long term (current) use of aspirin; Z90.49 Acquired absence of other specified parts of digestive tract; Z59.0 Homelessness

== ENCOUNTER 2018-01-28 00:06 | Emergency (ER) | payer MEDICARE, OTHER ==
[2018-01-28 00:06] VITALS: BMI 40.6
[2018-01-28 00:09] VITALS: RESP 14; TEMP 97.7; O2SAT 99
--- NOTE | 2018-01-28 01:51 | ED PDOC ---
HPI: Psych/Substance Abuse Time Seen by Provider: 01/28/18 00:15 Chief Complaint (Nursing): Alcohol Ingestion Chief Complaint (Provider): alcohol ingestion History Per: Patient History/Exam Limitations: no limitations Onset/Duration Of Symptoms: Hrs (today) Current Symptoms Are (Timing): Still Present Additional Complaint(s): Aman Coyne is a 47 year old male, with a past medical history of HTN, who was brought to the emergency department by [facility] for alcohol intoxication. Patient was found sleeping in the street and admits to drinking beer earlier tonight. Patient is well known to ED staff for history of alcohol and drug abuse. Patient states he experienced a brief episode of lower back pain this morning but has no complaints at present. Patient is requesting a place to sleep for the night. He denies any falls/trauma, nausea, vomit, diarrhea, headache, chest pain, SOB, numbness/weakness, fever, or chills. PMD: Kristy Velasquez Past Medical History Reviewed: Historical Data, Nursing Documentation, Vital Signs Vital Signs: Last Vital Signs Temp 97.7 F 01/28/18 00:06 Pulse 57 L 01/28/18 00:06 Resp 14 01/28/18 00:06 BP 139/81 01/28/18 00:06 Pulse Ox 99 01/28/18 00:06 - Medical History PMH: Anxiety, Arthritis, Asthma, Atrial Fibrillation, Bipolar Disorder, CHF, COPD (ASTHMA), Depression, Gall Bladder Disease, HTN, Schizophrenia - Surgical History Surgical History: Appendectomy, Cholecystectomy - Family History Family History: States: Unknown Family Hx - Social History Current smoker - smoking cessation education provided: Yes (Current some days smoker) Alcohol: > 2 Drinks/Day - Home Medications Home Medications: Ambulatory Orders Medication Instructions Recorded Folic Acid 1 mg PO DAILY #0 tab 07/12/15 Fluticasone Nasal [Flonase] 2 spray NS DAILY PRN 04/26/17 Furosemide [Lasix] 20 mg PO BID #30 tab 04/29/17 Gabapentin [Neurontin] 400 mg PO TID 10/28/17 Albuterol Sulfate [Ventolin Hfa] 2 puff IH Q6 PRN 11/11/17 Aspirin [Ecotrin] 81 mg PO DAILY 11/11/17 Cilostazol [Pletal] 100 mg PO Q12 11/11/17 Famotidine [Pepcid] 40 mg PO DAILY 11/11/17 Memantine [Namenda] 10 mg PO DAILY 11/11/17 rifAXIMin [Xifaxan] 550 mg PO Q12 11/11/17 Lactulose [Enulose] 20 gm PO QID #60 udc 11/15/17 Potassium Chloride [K-Tab ER] 20 meq PO DAILY #7 tablet.er 11/15/17 - Allergies Allergies/Adverse Reactions: Allergies Allergy/AdvReac Type Severity Reaction Status Date / Time No Known Allergies Allergy Verified 01/26/18 20:57 Review of Systems ROS Statement: Except As Marked, All Systems Reviewed And Found Negative Constitutional: Negative for: Fever, Chills Gastrointestinal: Negative for: Nausea, Vomiting, Diarrhea Physical Exam - Reviewed Nursing Documentation Reviewed: Yes Vital Signs Reviewed: Yes - Physical Exam Comments: GENERAL APPEARANCE: Patient is awake, alert, oriented x 3, in no acute distress. Resting comfortable. Odor of alcohol on breath SKIN: Warm, dry; (-) cyanosis HEAD: (-) scalp swelling, (-) scalp tenderness. EYES: (+) bilateral conjunctival injection (-) conjunctival pallor, (-) scleral icterus, (-) nystagmus. ENMT: Mucous membranes moist. Airway patent: (-) stridor. NECK: (-) tenderness, (-) stiffness, (-) lymphadenopathy. HEART AND CARDIOVASCULAR: (-) irregularity; (-) murmur, (-) gallop. CHEST AND RESPIRATORY: (-) rales, (-) rhonchi, (-) wheezes; breath sounds equal. ABDOMEN: Soft, (-) distention, (-) tenderness, (-) guarding. NEURO AND PSYCH: Mental status as above. (+) Mild slurred speech. 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 Pupils equal and reactive; EOMI; (-) facial asymmetry; tongue and uvula midline. Strength and DTRs symmetric. - ECG O2 Sat by Pulse Oximetry: 99 (RA) Pulse Ox Interpretation: Normal Medical Decision Making Medical Decision Making: Time: 00:15 Initial Impression: Alcohol abuse and intoxication Initial Plan: --Alcohol serum --Reevaluation 0105 Serum Alcohol: 272 Accucheck: 84 0200 Patient sleeping comfortably in ED. No acute distress noted. 0515 Patient awake, alert, oriented x3. Patient with steady gait in ED without assistance. Patient offers no complaints at this time. Lungs clear to auscultation, cardiac RRR, abdomen soft, non-tender, repeat neuro exam shows no focal findings. Vitals stable. Lab /Diagnostic results d/w the patient in great detail. Diagnosis of alcohol abuse with intoxication d/w the patient. Based on history, exam and diagnostic results, plan will be for outpatient follow up. Patient was observed in ED for 5+ hours with no evidence of neurological deterioration. Patient instructed to follow-up with pmd / referral provided / the clinic in 1- 2 days without fail. Return to the emergency room at any time for any new or worsening symptoms. Patient states he fully agrees with and understands discharge instructions. States that he agrees with the plan and disposition. Verbalized and repeated discharge instructions and plan. I have given the patient opportunity to ask any additional questions. ---- Scribe Attestation: Documented by Fletcher Faust, acting as a scribe for Domonique Costa PA-C. Provider Scribe Attestation: All medical record entries made by the Scribe were at my direction and personally dictated by me. I have reviewed the chart and agree that the record accurately reflects my personal performance of the history, physical exam, medical decision making, and the department course for this patient. I have also personally directed, reviewed, and agree with the discharge instructions and disposition. Disposition - Clinical Impression Clinical Impression: Alcohol abuse with intoxication - Patient ED Disposition Is Patient to be Admitted: No Counseled Patient/Family Regarding: Studies Performed, Diagnosis, Need For Followup - Disposition Referrals: [facility] [Outside] Disposition: Routine/Home Disposition Time: 05:15 Condition: FAIR Additional Instructions: La atencin mdica de emergencia que recibi hoy se dirigi a sudhir sntomas agudos. Si le recetaron algn medicamento, llnelo y tmelo segn las indicaciones. Los sntomas pueden tardar varios basilio en resolverse. Regrese al Departamento de Emergencias si sudhir sntomas empeoran, no mejoran o si tiene otros problemas. Comunquese con maguire mdico dentro de 2 basilio para lm nueva evaluacin y kiera un seguimiento o llame a yordan de los mdicos / clnicas a los que alvarez sido referido y que figuran en el formulario de Informacin de visita al paciente que se incluye en maguire paquete de edil. Lleve con usted a maguire consulta de seguimiento toda la documentacin que recibi del edil junto con los medicamentos que est tomando. Nuestro tratamiento no puede reemplazar la atencin mdica continua por parte de un proveedor de atencin primaria (PCP) fuera del departamento de emergencias. Instructions: Alcohol Abuse and Alcoholism (DC), Effects of Alcohol on Your Health Forms: [employer] (Brazilian) Print Language: LAO - POA Present On Arrival: None Results - Lab Results Lab Results: 01/28/18 01:05 Alcohol, Quantitative 272 H
[2018-01-28 05:56] VITALS: BP 150/91; PULSE 89
== END 2018-01-28 05:55 | disposition home or self-care (01) ==
LOC: H.ER 00:06
DX: F10.129 Alcohol abuse with intoxication, unspecified (principal)
CPT/HCPCS: 82948; 99282; G0480

== ENCOUNTER 2018-06-18 22:42 | Emergency (ER) | payer MEDICARE, OTHER ==
[2018-06-18 22:42] VITALS: BMI 48.0
[2018-06-18 23:47] LABS: SQUAMOUS EPITHIAL < 1 /hpf (0-5); URINE BILIRUBIN NEGATIVE (NEGATIVE); URINE BLOOD NEGATIVE (NEGATIVE); URINE CLARITY CLEAR (Clear); URINE COLOR COLORLESS (YELLOW); URINE GLUCOSE (UA) NEG (NEGATIVE); URINE LEUKOCYTE ESTERASE NEG Leu/uL (Negative); URINE PROTEIN NEGATIVE (NEGATIVE); URINE UROBILINOGEN 0.2-1.0 mg/dL (0.2-1.0)
[2018-06-18] MEDS ORDERED: Metoprolol 1 mg/ml Inj IVP ONE (23:55)
[2018-06-18 23:57] LABS: EOS # 0.2 K/uL (0.0-0.7); EOS % 3.9 % (0.0-4.0); HEMOGLOBIN 12.2 g/dL (12.0-18.0); LYMPH # 2.1 K/uL (1.0-4.3); MEAN CELL VOLUME 93.2 fl (80.0-94.0); MEAN CORPUSCULAR HGB CONC 33.3 g/dL (33.0-37.0); MEAN PLATELET VOLUME 7.3 fl (7.2-11.7); MONO # 0.5 K/uL (0.0-0.8); MONO % 12.4 % (0.0-10.0); NEUT # 1.6 K/uL (1.8-7.0); NEUT % 35.7 % (50.0-75.0); NRBC % 0.2 % (0.0-0.0); RBC 3.95 Mil/uL (4.40-5.90); RED CELL DISTRIBUTION WIDTH 20.7 % (11.5-14.5); WHITE BLOOD COUNT 4.4 K/uL (4.8-10.8)
[2018-06-19 00:10] LABS: ALB/GLOB RATIO 0.6 (1.0-2.1); ALBUMIN 3.2 g/dL (3.5-5.0); ALT/SGPT 29 U/L (21-72); AST/SGOT 66 U/L (17-59); BLOOD UREA NITROGEN 5 mg/dl (9-20); CALCIUM 8.5 mg/dL (8.4-10.2); GFR NON-AFRICAN AMERICAN > 60
[2018-06-19 00:21] LABS: B-TYPE NATRIURETIC PEPTIDE 182 pg/ml (0-450)
[2018-06-19] MEDS ORDERED: Metoprolol 1 mg/ml Inj ONE (00:49)
--- NOTE | 2018-06-19 02:43 | ED PDOC ---
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 His chart indicates that he has been seen in various hosptial emergency rooms in the area and treated for pain over the last few days; pt indicates that he hs not followed up nor filled his prescriptions Past Medical History Reviewed: Historical Data, Nursing Documentation, Vital Signs Vital Signs: Last Vital Signs Temp 98.4 F 06/18/18 22:46 Pulse 110 H 06/18/18 22:46 Resp 18 06/18/18 22:46 BP 132/75 06/18/18 22:46 Pulse Ox 98 06/18/18 22:46 - Medical History PMH: Anemia, Anxiety, Arthritis (KNEE), Asthma, Atrial Fibrillation, Cardia Arrh ythmia, CHF, COPD, Gall Bladder Disease, HTN, Pancreatitis, Pneumonia, Schizophrenia, TIA Denies: Bipolar Disorder, Depression, Diabetes, Hepatitis, HIV, Chronic Kidney Disease, Seizures, Sexually Transmitted Disease - Surgical History Surgical History: Appendectomy, Cholecystectomy Denies: CABG, Coronary Stent, Pacemaker, Tonsillectomy - Family History Family History: States: Unknown Family Hx - Immunization History Hx Tetanus Toxoid Vaccination: No Hx Influenza Vaccination: No Hx Pneumococcal Vaccination: No - Home Medications Home Medications: Ambulatory Orders Medication Instructions Recorded Folic Acid 1 mg PO DAILY #0 tab 07/12/15 Gabapentin [Neurontin] 400 mg PO TID 10/28/17 Cilostazol [Pletal] 100 mg PO Q12 11/11/17 rifAXIMin [Xifaxan] 550 mg PO Q12 11/11/17 Potassium Chloride [K-Tab ER] 20 meq PO DAILY #7 tablet.er 11/15/17 Lactulose [Enulose] 20 gm PO BID 30 Days udc 03/17/18 Magnesium Oxide [Mag-Ox] 800 mg PO TID #40 tab 05/13/18 Spironolactone [Aldactone] 50 mg PO DAILY #30 tab 05/13/18 levoFLOXacin [Levaquin] 1 tab PO DAILY #7 tab 06/12/18 Cyclobenzaprine [Cyclobenzaprine 10 mg PO TID #15 tab 06/13/18 HCl] Ibuprofen [Motrin] 600 mg PO TID #15 tab 06/13/18 Ibuprofen [Motrin] 1 tab PO QID #30 tab 06/19/18 - Allergies Allergies/Adverse Reactions: Allergies Allergy/AdvReac Type Severity Reaction Status Date / Time No Known Allergies Allergy Verified 06/18/18 22:44 Review of Systems ROS Statement: Except As Marked, All Systems Reviewed And Found Negative Cardiovascular: Positive for: Edema Respiratory: Negative for: Cough Musculoskeletal: Positive for: Leg Pain Skin: Positive for: Rash Physical Exam - Reviewed Nursing Documentation Reviewed: Yes Vital Signs Reviewed: Yes - Physical Exam Appears: Positive for: No Acute Distress, Uncomfortable Head Exam: Positive for: ATRAUMATIC, NORMAL INSPECTION Skin: Positive for: Warm, Dry, Rash. Negative for: Normal Color, Diaphoresis, Pallor Eye Exam: Positive for: Normal appearance. Negative for: Nystagmus, Periorbital swelling, Periorbital tenderness Cardiovascular/Chest: Positive for: Regular Rate, Rhythm Respiratory: Positive for: Normal Breath Sounds. Negative for: Stridor, Wheezing, Respiratory Distress Pulses-Carotid (L): 2+ Pulses-Carotid (R): 2+ Pulses-Radial (L): 2+ Pulses-Radial (R): 2+ Extremity: Positive for: Tenderness, Pedal Edema, Capillary Refill. Negative for: Deformity - Laboratory Results Result Diagrams: 06/18/18 23:25 06/18/18 23:25 Lab Results: Troponin I 0.0160 ng/mL (0.00-0.120) 06/18/18 23:25 NT-Pro-B Natriuret Pep 182 pg/ml (0-450) 06/18/18 23:25 Total Bilirubin 1.3 mg/dl (0.2-1.3) 06/18/18 23:25 AST 66 U/L (17-59) H D 06/18/18 23:25 ALT 29 U/L (21-72) 06/18/18 23:25 Alkaline Phosphatase 164 U/L (38-126) H 06/18/18 23:25 Total Protein 9.1 G/DL (6.3-8.2) H 06/18/18 23:25 Albumin 3.2 g/dL (3.5-5.0) L 06/18/18 23:25 Globulin 5.8 gm/dL (2.2-3.9) H 06/18/18 23:25 Albumin/Globulin Ratio 0.6 (1.0-2.1) L 06/18/18 23:25 Urine Color Colorless (YELLOW) 06/18/18 23:20 Urine Clarity Clear (Clear) 06/18/18 23:20 Urine pH 7.0 (5.0-8.0) 06/18/18 23:20 Ur Specific [place] < 1.005 (1.003-1.030) 06/18/18 23:20 Urine Protein Negative mg/dL (NEGATIVE) 06/18/18 23:20 Urine Glucose (UA) Neg mg/dL (NEGATIVE) 06/18/18 23:20 Urine Ketones Negative mg/dL (NEGATIVE) 06/18/18 23:20 Urine Blood Negative (NEGATIVE) 06/18/18 23:20 Urine Nitrate Negative (NEGATIVE) 06/18/18 23:20 Urine Bilirubin Negative (NEGATIVE) 06/18/18 23:20 Urine Urobilinogen 0.2-1.0 mg/dL (0.2-1.0) 06/18/18 23:20 Ur Leukocyte Esterase Neg Vivian/uL (Negative) 06/18/18 23:20 Urine RBC (Auto) < 1 /hpf (0-3) 06/18/18 23:20 Urine Microscopic WBC < 1 /hpf (0-5) 06/18/18 23:20 Ur Squamous Epith Cells < 1 /hpf (0-5) 06/18/18 23:20 - ECG O2 Sat by Pulse Oximetry: 98 Medical Decision Making Medical Decision Making: I: rule out hyperammonia/CHF P: labs CBC CMP BNP UA Disposition - Clinical Impression Clinical Impression: Edema, Sciatica - Patient ED Disposition Is Patient to be Admitted: No Doctor Will See Patient In The: Office Counseled Patient/Family Regarding: Diagnosis, Need For Followup - Disposition Referrals: Kristy Velasquez MD [Medical Doctor] - Disposition: Routine/Home Disposition Time: 01:40 Condition: STABLE Prescriptions: Ibuprofen [Motrin] 1 tab PO QID #30 tab Instructions: Sciatica (DC), Dependent Edema (DC), Swelling, Fluid Restricted Diet, Sciatica Exercises Forms: [employer] (Khmer), [employer] (Uzbek) Print Language: KISWAHILI
[2018-06-19 06:58] VITALS: BP 118/66; PULSE 98; RESP 17; TEMP 98.1; O2SAT 100
--- NOTE | 2018-06-19 09:57 | CARD ---
APPROVED REPORT Date of service: 06/18/2018 EKG Measurement Heart [id number] <Conclusion> Atrial fibrillation with rapid ventricular response Nonspecific ST and T wave abnormality Abnormal ECG
--- NOTE | 2018-06-19 10:46 | RAD ---
Date of service: 06/18/2018 HISTORY: sob/sultana COMPARISON: Chest radiograph dated 01/16/2017. TECHNIQUE: Chest PA and lateral FINDINGS: LUNGS: No active pulmonary disease. PLEURA: No significant pleural effusion identified. No pneumothorax apparent. CARDIOVASCULAR: No aortic atherosclerotic calcification present. Cardiomediastinal silhouette stably enlarged. OSSEOUS STRUCTURES: Unchanged. VISUALIZED UPPER ABDOMEN: Normal. OTHER FINDINGS: None. IMPRESSION: No active disease.
== END 2018-06-19 05:53 | disposition home or self-care (01) ==
LOC: H.ER 22:42
DX: M54.30 Sciatica, unspecified side (principal); R60.0 Localized edema; J44.9 Chronic obstructive pulmonary disease, unspecified; Z79.899 Other long term (current) drug therapy; Z86.73 Personal history of transient ischemic attack (TIA), and cerebral infarction without residual deficits
CPT/HCPCS: 71046; 80053; 81003; 82140; 83880; 84484; 85025; 93005; 96374; 99285; G0480; J1885

== ENCOUNTER 2018-06-19 21:31 | Emergency (ER) | payer MEDICARE, OTHER ==
[2018-06-19 21:32] VITALS: BMI 48.0
[2018-06-19 21:35] VITALS: BP 117/78; PULSE 93; RESP 18; TEMP 97.1; O2SAT 100
--- NOTE | 2018-06-20 00:16 | ED PDOC ---
HPI: Psych/Substance Abuse Time Seen by Provider: 06/19/18 21:47 Chief Complaint (Nursing): Alcohol Ingestion Chief Complaint (Provider): Chronic Pain, Bed Seeking Behavior ED Caveat: Uncooperative History Per: Patient History/Exam Limitations: no limitations Onset/Duration Of Symptoms: Days (chronic pain) Current Symptoms Are (Timing): Constant (Pt presents to the ED complaining of "pain" after having been discharged with an NSAID rx earlier today. The patient denies any truama or any changes in his condition, but does state that his sister has asked him to leave the house and he is desireous of a place to stay. The patient has a PMHx that includes alcohol abuse (current), cirrohis (current), HTN and D2M.) Past Medical History Reviewed: Historical Data, Nursing Documentation, Vital Signs Vital Signs: Last Vital Signs Temp 97.1 F L 06/19/18 21:33 Pulse 93 H 06/19/18 21:33 Resp 18 06/19/18 21:33 BP 117/78 06/19/18 21:33 Pulse Ox 100 06/19/18 21:33 - Medical History PMH: Anemia, Anxiety, Arthritis (KNEE), Asthma, Atrial Fibrillation, Cardia Arrhythmia, CHF, COPD, Gall Bladder Disease, HTN, Pancreatitis, Pneumonia, Schizophrenia, TIA Denies: Bipolar Disorder, Depression, Diabetes, Hepatitis, HIV, Chronic Kidney Disease, Seizures, Sexually Transmitted Disease - Surgical History Surgical History: Appendectomy, Cholecystectomy Denies: CABG, Coronary Stent, Pacemaker, Tonsillectomy - Family History Family History: States: Unknown Family Hx - Immunization History Hx Tetanus Toxoid Vaccination: No Hx Influenza Vaccination: No Hx Pneumococcal Vaccination: No - Home Medications Home Medications: Ambulatory Orders Medication Instructions Recorded Folic Acid 1 mg PO DAILY #0 tab 07/12/15 Gabapentin [Neurontin] 400 mg PO TID 10/28/17 Cilostazol [Pletal] 100 mg PO Q12 11/11/17 rifAXIMin [Xifaxan] 550 mg PO Q12 11/11/17 Potassium Chloride [K-Tab ER] 20 meq PO DAILY #7 tablet.er 11/15/17 Lactulose [Enulose] 20 gm PO BID 30 Days udc 03/17/18 Magnesium Oxide [Mag-Ox] 800 mg PO TID #40 tab 05/13/18 Spironolactone [Aldactone] 50 mg PO DAILY #30 tab 05/13/18 levoFLOXacin [Levaquin] 1 tab PO DAILY #7 tab 06/12/18 Cyclobenzaprine [Cyclobenzaprine 10 mg PO TID #15 tab 06/13/18 HCl] Ibuprofen [Motrin] 600 mg PO TID #15 tab 06/13/18 Ibuprofen [Motrin] 1 tab PO QID #30 tab 06/19/18 - Allergies Allergies/Adverse Reactions: Allergies Allergy/AdvReac Type Severity Reaction Status Date / Time No Known Allergies Allergy Verified 06/18/18 22:44 Review of Systems ROS Statement: Except As Marked, All Systems Reviewed And Found Negative Musculoskeletal: Positive for: Other (pain) Physical Exam - Reviewed Nursing Documentation Reviewed: Yes Vital Signs Reviewed: Yes - Physical Exam Appears: Positive for: Well, Non-toxic, No Acute Distress, Uncomfortable Head Exam: Positive for: ATRAUMATIC, NORMAL INSPECTION Skin: Positive for: Normal Color, Warm, Dry. Negative for: Diaphoresis, Pallor, Rash Eye Exam: Positive for: Normal appearance. Negative for: Nystagmus, Periorbital swelling, Periorbital tenderness Neck: Positive for: Normal, Painless ROM, Supple. Negative for: Decreased ROM Cardiovascular/Chest: Positive for: Regular Rate, Rhythm Respiratory: Positive for: Normal Breath Sounds Extremity: Positive for: Tenderness, Pedal Edema, Swelling (The patient has chronic dry venous statis of the bilateral lower extremities) - ECG O2 Sat by Pulse Oximetry: 100 Medical Decision Making Medical Decision Making: I: chronic pain seeking narcotic relief P: advise to fill rx given earlier in day; discharge The patient is stable for discharge The patient is safe for discharge Disposition - Clinical Impression Clinical Impression: Chronic pain Counseled Patient/Family Regarding: Diagnosis - Disposition Disposition: Routine/Home Disposition Time: 00:05 Condition: STABLE Instructions: Chronic Pain (DC) Forms: [employer] (Ivorian), [employer] (Portuguese) Print Language: INDONESIAN
== END 2018-06-20 00:45 | disposition home or self-care (01) ==
LOC: H.ER 21:31
DX: G89.29 Other chronic pain (principal); Z86.59 Personal history of other mental and behavioral disorders; I11.0 Hypertensive heart disease with heart failure; J44.9 Chronic obstructive pulmonary disease, unspecified; Z79.899 Other long term (current) drug therapy; Z86.73 Personal history of transient ischemic attack (TIA), and cerebral infarction without residual deficits; E11.9 Type 2 diabetes mellitus without complications

== ENCOUNTER 2018-07-01 00:33 | Emergency (ER) | payer MEDICARE, OTHER ==
[2018-07-01 00:33] VITALS: BMI 48.0
--- NOTE | 2018-07-01 04:18 | ED PDOC ---
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 Patient states he has been staying at the custodial and "just can't do it anymore". Patient denies numbness/weakness of extremities, bowel/bladder incontinence. Past Medical History Reviewed: Historical Data, Nursing Documentation, Vital Signs Vital Signs: Last Vital Signs Temp 98.0 F 07/01/18 02:55 Pulse 98 H 07/01/18 02:55 Resp 18 07/01/18 02:55 BP 103/72 07/01/18 02:55 Pulse Ox 100 07/01/18 02:55 - Medical History PMH: Anemia, Anxiety, Arthritis (KNEE), Asthma, Atrial Fibrillation, Cardia Arrhythmia, CHF, COPD, Gall Bladder Disease, HTN, Pancreatitis, Pneumonia, Schizophrenia, TIA Denies: Bipolar Disorder, Depression, Diabetes, Hepatitis, HIV, Chronic Kidney Disease, Seizures, Sexually Transmitted Disease - Surgical History Surgical History: Appendectomy, Cholecystectomy Denies: CABG, Coronary Stent, Pacemaker, Tonsillectomy - Family History Family History: States: Unknown Family Hx - Immunization History Hx Tetanus Toxoid Vaccination: No Hx Influenza Vaccination: No Hx Pneumococcal Vaccination: No - Home Medications Home Medications: Ambulatory Orders Medication Instructions Recorded Folic Acid 1 mg PO DAILY #0 tab 07/12/15 Gabapentin [Neurontin] 400 mg PO TID 10/28/17 Cilostazol [Pletal] 100 mg PO Q12 11/11/17 rifAXIMin [Xifaxan] 550 mg PO Q12 11/11/17 Potassium Chloride [K-Tab ER] 20 meq PO DAILY #7 tablet.er 11/15/17 Lactulose [Enulose] 20 gm PO BID 30 Days udc 03/17/18 Magnesium Oxide [Mag-Ox] 800 mg PO TID #40 tab 05/13/18 Spironolactone [Aldactone] 50 mg PO DAILY #30 tab 05/13/18 levoFLOXacin [Levaquin] 1 tab PO DAILY #7 tab 06/12/18 Cyclobenzaprine [Cyclobenzaprine 10 mg PO TID #15 tab 06/13/18 HCl] Ibuprofen [Motrin] 600 mg PO TID #15 tab 06/13/18 Ibuprofen [Motrin] 600 mg PO Q6H #14 tab 06/24/18 - Allergies Allergies/Adverse Reactions: Allergies Allergy/AdvReac Type Severity Reaction Status Date / Time No Known Allergies Allergy Verified 07/01/18 02:55 Review of Systems ROS Statement: Except As Marked, All Systems Reviewed And Found Negative Musculoskeletal: Positive for: Back Pain Physical Exam - Reviewed Nursing Documentation Reviewed: Yes Vital Signs Reviewed: Yes - Physical Exam Appears: Positive for: Well, Non-toxic, No Acute Distress Head Exam: Positive for: ATRAUMATIC, NORMAL INSPECTION, NORMOCEPHALIC Skin: Positive for: Normal Color Cardiovascular/Chest: Positive for: Regular Rate, Rhythm Respiratory: Positive for: Normal Breath Sounds Back: Positive for: Normal Inspection, Muscle Spasm (bilateral lspine paravertebral tenderness). Negative for: L CVA Tenderness, R CVA Tenderness, Vertebral Tenderness Extremity: Positive for: Pedal Edema (bilateral), Swelling (bilateral lower extremity edema with chronic venous stasis skin changes; no warmth, erythema noted). Negative for: Calf Tenderness Neurological/Psych: Positive for: Awake, Alert, Oriented (x3) - ECG O2 Sat by Pulse Oximetry: 100 - Progress ED Course And Treament: -Toradol IM Patient sleeping throughout ED visit. Patient requires no further intervention in the ED and is stable for discharge at this time Patient was advised to follow up with PMD Advised ibuprofen PRN pain Return precautions given Disposition - Clinical Impression Clinical Impression: Chronic pain - Patient ED Disposition Is Patient to be Admitted: No Counseled Patient/Family Regarding: Diagnosis, Need For Followup - Disposition Disposition: Routine/Home Disposition Time: 04:27 Condition: IMPROVED Instructions: Low Back Pain in Adults Print Language: TUVALU[place]
[2018-07-01 04:56] VITALS: BP 114/84; PULSE 68; RESP 15; TEMP 98.2; O2SAT 97
== END 2018-07-01 05:21 | disposition home or self-care (01) ==
LOC: H.ER 00:33
DX: G89.29 Other chronic pain (principal)
CPT/HCPCS: 96372; 99283; J1885

== ENCOUNTER 2018-07-01 21:29 | Emergency (ER) | payer MEDICARE, OTHER ==
[2018-07-01 21:30] VITALS: BMI 48.0
[2018-07-01 21:33] VITALS: BP 128/76; PULSE 63; RESP 16; TEMP 98.6; O2SAT 97
--- NOTE | 2018-07-01 22:14 | ED PDOC ---
HPI: Psych/Substance Abuse Time Seen by Provider: 07/01/18 21:49 Chief Complaint (Nursing): Alcohol Ingestion Chief Complaint (Provider): Alcohol Ingestion History Per: EMS History/Exam Limitations: no limitations Onset/Duration Of Symptoms: Unknown Current Symptoms Are (Timing): Still Present Modifying Factor(s): Alcohol Additional Complaint(s): 47 y/o male brought in by EMS for public intoxication. Patient known to ED staff and provider for frequent visits for public alcohol intoxication. On arrival, patient is agitated and uncooperative. On arrival, patient placed on 4 point restraints due to high risk for elopement and harm to self and ED staff. PMD: no provider Past Medical History Reviewed: Historical Data, Nursing Documentation, Vital Signs Vital Signs: Last Vital Signs Temp 98.6 F 07/01/18 21:32 Pulse 63 07/01/18 21:32 Resp 16 07/01/18 21:32 BP 128/76 07/01/18 21:32 Pulse Ox 97 07/01/18 21:32 - Medical History PMH: Anemia, Anxiety, Arthritis (KNEE), Asthma, Atrial Fibrillation, Cardia Arrhythmia, CHF, COPD, Gall Bladder Disease, HTN, Pancreatitis, Pneumonia, Schizophrenia, TIA Denies: Bipolar Disorder, Depression, Diabetes, Hepatitis, HIV, Chronic Kidney Disease, Seizures, Sexually Transmitted Disease - Surgical History Surgical History: Appendectomy, Cholecystectomy Denies: CABG, Coronary Stent, Pacemaker, Tonsillectomy - Family History Family History: States: Unknown Family Hx - Social History Alcohol: > 2 Drinks/Day - Immunization History Hx Tetanus Toxoid Vaccination: No Hx Influenza Vaccination: No Hx Pneumococcal Vaccination: No - Home Medications Home Medications: Ambulatory Orders Medication Instructions Recorded Folic Acid 1 mg PO DAILY #0 tab 07/12/15 Gabapentin [Neurontin] 400 mg PO TID 10/28/17 Cilostazol [Pletal] 100 mg PO Q12 11/11/17 rifAXIMin [Xifaxan] 550 mg PO Q12 11/11/17 Potassium Chloride [K-Tab ER] 20 meq PO DAILY #7 tablet.er 11/15/17 Lactulose [Enulose] 20 gm PO BID 30 Days udc 03/17/18 Magnesium Oxide [Mag-Ox] 800 mg PO TID #40 tab 05/13/18 Spironolactone [Aldactone] 50 mg PO DAILY #30 tab 05/13/18 levoFLOXacin [Levaquin] 1 tab PO DAILY #7 tab 06/12/18 Cyclobenzaprine [Cyclobenzaprine 10 mg PO TID #15 tab 06/13/18 HCl] Ibuprofen [Motrin] 600 mg PO TID #15 tab 06/13/18 Ibuprofen [Motrin] 600 mg PO Q6H #14 tab 06/24/18 - Allergies Allergies/Adverse Reactions: Allergies Allergy/AdvReac Type Severity Reaction Status Date / Time No Known Allergies Allergy Verified 07/01/18 21:33 Review of Systems Review Of Systems: ROS cannot be obtained secondary to pt's inabilty to answer questions. (patient brought in by EMS for public intoxication) Physical Exam - Reviewed Nursing Documentation Reviewed: Yes Vital Signs Reviewed: Yes - Physical Exam Appears: Positive for: No Acute Distress Head Exam: Positive for: ATRAUMATIC Skin: Positive for: Normal Color Eye Exam: Positive for: Normal appearance Neck: Positive for: Normal, Painless ROM Cardiovascular/Chest: Positive for: Regular Rate, Rhythm. Negative for: Murmur, Bradycardia, Tachycardia Respiratory: Positive for: Normal Breath Sounds. Negative for: Respiratory Distress Extremity: Positive for: Normal ROM Neurological/Psych: Positive for: Awake, Alert - Laboratory Results Result Diagrams: 07/01/18 22:53 07/01/18 22:53 - ECG O2 Sat by Pulse Oximetry: 97 (RA) Pulse Ox Interpretation: Normal - Critical Care Total Time (In Min): 30 Documented Critical Care: Time excludes all time spent performint seperately billable procedures Medical Decision Making Medical Decision Making: Time: 2149 Impression: Public Intoxication Plan: -- Alcohol Serum -- CMP -- Urine Drug Screen -- ED Urine Dipstick -- CBC with Differentials -- Ativan 2 mg IVP -- Haldol 5 mg IVP -- 1:1 Observation -- Restraints -- Urinalysis 05:27 Patient is clinically sober and stable for discharge. Diagnosis is alcohol intoxication Scribe Attestation: Documented by Brian Grajeda, acting as a scribe Elise Davenport MD. Provider Scribe Attestation: All medical record entries made by the Scribe were at my direction and personally dictated by me. I have reviewed the chart and agree that the record accurately reflects my personal performance of the history, physical exam, medical decision making, and the department course for this patient. I have also personally directed, reviewed, and agree with the discharge instructions and disposition. Disposition - Clinical Impression Clinical Impression: Alcohol abuse with intoxication - Patient ED Disposition Is Patient to be Admitted: No - Disposition Disposition: Routine/Home Disposition Time: 05:27 Condition: STABLE Additional Instructions: MYLENE MUÑIZ, thank you for letting us take care of you today. Your provider was Oli Davenport MD and you were treated for ETOH. The emergency medical care you received today was directed at your acute symptoms. If you were prescribed any medication, please fill it and take as directed. It may take several days for your symptoms to resolve. Return to the Emergency Department if your symptoms worsen, do not improve, or if you have any other problems. Please contact your doctor or call one of the physicians/clinics you have been referred to that are listed on the Patient Visit Information form that is included in your discharge packet. Bring any paperwork you were given at discharge with you along with any medications you are taking to your follow up visit. Our treatment cannot replace ongoing medical care by a primary care provider outside of the emergency department. Thank you for allowing the [facility] team to be part of your care today. If you had an X-Ray or CT scan: A Radiologist will review the ED reading if any change in treatment is needed we will contact you. If you had a blood, urine, or wound culture: It will take several days for the results, if any change in treatment is needed we will contact you. If you had an STI test: It will take 48 hours for the results. Please call after 1 week if you have not heard back. Instructions: Alcohol Use - When Is Drinking a Problem? Forms: [employer] (Danish) Print Language: TELUGU
[2018-07-01 22:57] LABS: BASO % 0.5 % (0.0-2.0); EOS # 0.1 K/uL (0.0-0.7); EOS % 3.7 % (0.0-4.0); HEMOGLOBIN 11.6 g/dL (12.0-18.0); LYMPH # 1.6 K/uL (1.0-4.3); LYMPH % 43.8 % (20.0-40.0); MEAN CELL VOLUME 92.6 fl (80.0-94.0); MEAN CORPUSCULAR HEMOGLOBIN 29.8 pg (27.0-31.0); MEAN CORPUSCULAR HGB CONC 32.2 g/dL (33.0-37.0); MEAN PLATELET VOLUME 7.6 fl (7.2-11.7); MONO # 0.9 K/uL (0.0-0.8); MONO % 23.6 % (0.0-10.0); NEUT # 1.1 K/uL (1.8-7.0); NEUT % 28.4 % (50.0-75.0); NRBC % 0.2 % (0.0-0.0); PLATELET COUNT 126 K/uL (130-400); RBC 3.89 Mil/uL (4.40-5.90); RED CELL DISTRIBUTION WIDTH 18.4 % (11.5-14.5); WHITE BLOOD COUNT 3.7 K/uL (4.8-10.8)
[2018-07-01 23:00] LABS: SQUAMOUS EPITHIAL < 1 /hpf (0-5); URINE BILIRUBIN NEGATIVE (NEGATIVE); URINE BLOOD NEGATIVE (NEGATIVE); URINE CLARITY CLEAR (Clear); URINE COLOR STRAW (YELLOW); URINE GLUCOSE (UA) NEG (NEGATIVE); URINE LEUKOCYTE ESTERASE NEG Leu/uL (Negative); URINE PROTEIN NEGATIVE (NEGATIVE); URINE UROBILINOGEN 0.2-1.0 mg/dL (0.2-1.0)
[2018-07-01 23:10] LABS: ALB/GLOB RATIO 0.6 (1.0-2.1); ALT/SGPT 40 U/L (21-72); AST/SGOT 134 U/L (17-59); BLOOD UREA NITROGEN 8 mg/dl (9-20); CALCIUM 8.4 mg/dL (8.4-10.2); GFR NON-AFRICAN AMERICAN > 60
[2018-07-01 23:28] LABS: BARBITURATES, UR NEGATIVE (NEGATIVE); BENZODIAZEPINES, UR NEGATIVE (NEGATIVE); OPIATES, UR NEGATIVE (NEGATIVE); PHENCYCLIDINE, UR NEGATIVE (NEGATIVE)
[2018-07-02 01:30] LABS: BANDS 3 % (0-2); EOSINOPHIL 3 % (0-7); LYMPHOCYTE 32 % (20-50); MONOCYTE 15 % (0-10); MYELOCYTE 1 % (0-0); NEUTROPHIL 44 % (42-75); PLATELET ESTIMATE SLIGHTLY DECREASED (NORMAL); REACTIVE LYMPHOCYTES 2 % (0-0); TOTAL CELLS COUNTED 100
[2018-07-02 01:33] LABS: ANISOCYTOSIS SLIGHT; HYPOCHROMIC SLIGHT; LARGE PLATELETS PRESENT; TEARDROP CELLS SLIGHT
== END 2018-07-02 07:02 | disposition home or self-care (01) ==
LOC: H.ER 21:29
DX: F10.129 Alcohol abuse with intoxication, unspecified (principal)
CPT/HCPCS: 80053; 81003; 85025; 96372; 99284; G0480; J1630; J2060